=== PATIENT | female | born 1960 | race Caucasian/White ===

== ENCOUNTER → 2019-11-24 08:55 | Outpatient (CLI) | payer BC, SELFPAY ==
--- NOTE | ~2019-11-24 | CT_ITS ---
EXAMINATION: CT lung screening EXAM DATE: 11/24/2019 09:21 INDICATION: Personal history of nicotine dependence. Breast cancer. TECHNIQUE: Spiral low dose CT of the chest without contrast. Axial, coronal and sagittal images were reviewed. The dose-length product (DLP) for this examination was 105.80 mGy-cm. The exposure was t ailored according to patient size (auto mA exposure control), and iterative reconstruction (ASIR) was used as additional dose reduction technique. There is no prior study for comparison. FINDINGS: There is a left-sided Chemo-Port in position. Mild to moderate emphysema and hyperinflatio n. Left upper lobe calcified granuloma. Incompletely imaged masslike density superficial to the right axilla. Tracheobronchial tree is patent. There is no mediastinal, hilar or axillary lymphadenopat hy. There are no pleural or pericardial effusions. There is no pneumothorax. Heart normal in si ze. No evidence of coronary arterial calcification. There is 1.9 cm left adrenal adenoma. There is mild thoracic spondylosis without osteoblastic or osteolytic lesions identified. IMPRESSION: 1. Lung-RADS category 1S, negative (<1%chance of malignancy); recommend continued LDCT screening in 1 year. 2. Incompletely imaged mass anterior to the right axilla. Reviewed, dictated and finalized at location B. WRIGHT INSTRUCTOR IMPRESSION: 1. Lung-RADS category 1S, negative (<1%chance of malignancy); recommend contin ued LDCT screening in 1 year. 2. Incompletely imaged mass anterior to the right axilla.
== END ==
PROVIDERS: PCP Internal Medicine; Visit Provider Radiology Radiation Oncology
DX: Z12.2 Encounter for screening for malignant neoplasm of respiratory organs (principal); Z87.891 Personal history of nicotine dependence
CPT/HCPCS: G0297

== ENCOUNTER 2019-11-28 13:10 | Outpatient (CLI) | payer BC, SELFPAY ==
--- NOTE | ~2019-11-28 | US_ITS ---
EXAMINATION: US breast RT limited HISTORY: Lump in the upper outer quadrant of the right breast TECHNIQUE: Targeted right breast ultrasound is performed. FINDINGS: There is a 2.1 x 1.9 x 1.7 cm anechoic area in the right breast at the 11:00 location 9 cm from the nipple corresponding to the area of clinical interest. This demonstrates posterior acoustic enhancement with no internal vascularity. IMPRESSION: Cystic area corresponding to the right breast lump. Given history of lymph node removal from this are a, finding is most consistent with a small seroma. Clinical follow-up is recommended. BI-RADS Category 2: Benign finding(s). Reviewed, dictated and finalized at location A. BURNER IMPRESSION: Cystic area corresponding to the right breast lump. Given history of lymph node removal from this area, finding is most consistent with a small seroma. Clinic al follow-up is recommended. BI-RADS Category 2: Benign finding(s).
== END 2019-11-28 13:11 | disposition home or self-care (01) ==
PROVIDERS: PCP Internal Medicine; Visit Provider Internal Medicine Hematology & Oncology
DX: C50.411 Malignant neoplasm of upper-outer quadrant of right female breast (principal); Z17.0 Estrogen receptor positive status [ER+]
CPT/HCPCS: 76642

== ENCOUNTER 2020-03-12 13:43 | Emergency (ER) | payer SELFPAY ==
[2020-03-12] VITALS (7 sets, daily range): BP systolic 117–126; BP diastolic 80–84; PULSE 87–96; RESP 13–25; O2SAT 95–100
--- NOTE | ~2020-03-12 | XR_ITS ---
XR hip LT min 3V w AP pelvis DATE: 03/12/2020 15:49 INDICATION: Left hip pain. Femoral head pain. TECHNIQUE: AP pelvis. AP, lateral, crosstable lateral views of left hip COMPARISON: None FINDINGS: No pelvic fracture or bone destruction is detected. The pubic symphysis and sacroiliac join ts are intact. Hip joint spaces are relatively well preserved, except for mild narrowing and spurring primarily on the right. IMPRESSION: Mild osteoarthritis of right hip Reviewed, dictated and finalized at location A.
--- NOTE | ~2020-03-12 | US_ITS ---
EXAMINATION: US venous doppler [facility] DATE: 03/12/2020 15:17 INDICATION: Left lower limb pain. TECHNIQUE: Grayscale ultrasound images without and with compression and Doppler ultrasound images of the left lower extremity veins were obtained. COMPARISON: Ultrasound 10/07/2017 FINDINGS: The visualized portions of left common femoral vein, profunda (deep) femoral vein, femoral vein, popl iteal vein, peroneal veins, posterior tibial veins, and greater saphenous vein outflow are patent. IMPRESSION: 1. No deep venous thrombosis. Reviewed, dictated and finalized at location A.
--- NOTE | ~2020-03-12 | CT_ITS ---
EXAMINATION: CTA chest PE protocol DATE: 03/12/2020 15:58 INDICATION: TECHNIQUE: Computed tomography angiography (CTA) of the chest was performed with 100 mL Omnipaque-350 intravenous contrast timed to evaluate the pulmonary arteries. Coronal maximum intensity projection 3D-reconstructions were created by the technologist. Automated exposure control and iterative reconst ruction technique were employed. Exam dose: 232.95 mGy-cm total exam DLP. COMPARISON: None. FINDINGS: There is moderate contrast opacification the pulmonary arteries and no evidence of pulmonar y embolism. No thoracic aortic aneurysm or dissection. No pericardial or pleural effusion. No hilar or mediastinal mass lesion or lymphadenopathy. Right-sided thyroid goiter. There is no pulmonary consolidation. There is old pulmonary granulomatous disease. Approximately 1.3 x 2 cm low attenuation left adrenal mass, likely an adrenal adenoma. No suspicious osteolytic or osteoblastic lesions are noted. IMPRESSION: No evidence of pulmonary embolism Reviewed, dictated and finalized at Location A. Reviewed, dictated and finalized at location A.
--- NOTE | ~2020-03-12 | XR_ITS ---
XR chest 1V DATE: 03/12/2020 15:49 INDICATION: Shortness of breath TECHNIQUE: PA chest COMPARISON: 11/24/2019 CT lung screening FINDINGS: Left Port-A-Cath catheter tip is in lower superior vena cava. Normal heart size. Aortic arc h calcification. No hilar or mediastinal enlargement. Bilateral hyperinflation consistent with emphysema. No pulmonary infiltrate or consolidation, pleural effusion or pulmonary vascular congestion or pneumothorax. Included skeletal structures are unremark able. IMPRESSION: Left chemotherapy port Bilateral hyperinflation; no active cardiopulmonary disease Reviewed, dictated and finalized at location A.
--- NOTE | 2020-03-12 14:06 | ECG_ITS ---
Measurements Intervals Hunt Rate: 92 P: 81 LA: 145 QRS: -5 QRSD: 89 T: 72 QT: 309 QTc: 384 Interpretive Statements SINUS RHYTHM INCOMPLETE RIGHT BUNDLE BRANCH BLOCK BORDERLINE ST-T WAVE ABNORMALITY- ANTEROLAT/LAT LEADS BORDERLINE ECG Electronically Signed On 03-12-2020 14:50:29 CDT by Andi Link D.O.
[2020-03-12] MEDS: SODIUM CHLORIDE 0.9% IV 1,000 ML 999 ML IV CONT (14:45)
[2020-03-12 14:52] LABS: Basophils Percent Auto 0.5 % (0.2-1.2); Eosinophils Absolute Auto 0.1 K/mm3 (0-0.3); Eosinophils Percent Auto 2.5 % (0-4.4); Hematocrit 39.3 % (37.0-47.0); Hemoglobin 12.9 g/dL (12.0-15.0); Immature Granulocyte Absolute 0.02 K/mm3 (0.00-0.031); Immature Granulocyte Percent A 0.4 % (0-0.5); Lymphocytes Absolute Auto 1.18 K/mm3 (0.9-3.2); Lymphocytes Percent Auto 21.2 % (18.3-44.2); Mean Corpuscular HGB Conc 32.8 g/dl (32-36); Mean Corpuscular Hemoglobin 29.6 pg (26-34); Mean Corpuscular Volume 90.1 fl (80-100); Mean Platelet Volume 9.4 fl (7.4-10.4); Monocytes Absolute Auto 0.5 K/mm3 (0.1-0.6); Monocytes Percent Auto 8.4 % (2.6-8.5); Neutrophils Absolute Auto 3.7 K/mm3 (1.3-6.7); Platelet Count Result 307 k/mm3 (150-375); Red Blood Count 4.36 M/mm3 (4.2-5.4); White Blood Count 5.6 K/mm3 (4.5-10.0)
[2020-03-12 14:57] LABS: INR 1.1; Partial Thromboplastin Time 29.3 SECONDS (22.3-36.8); Prothrombin Time 13.5 Seconds (11.1-14.7)
[2020-03-12 15:00] LABS: D Dimer 1.04 ug/mL (<0.48)
[2020-03-12 15:01] LABS: Alanine Aminotransferase 14 U/L (4-35); Albumin Level 4.2 g/dL (3.5-5.1); Alkaline Phosphatase 96 U/L (38-126); Aspartate Amino Transferase 23 U/L (14-36); Bilirubin,Total 0.3 mg/dL (0.2-1.3); Blood Urea Nitrogen 11 mg/dL (7-17); Calcium 9.4 mg/dL (8.4-10.2); Carbon Dioxide 26 mmol/L (22-30); Chloride 104 mmol/L (98-107); Estimated CRCL calculation 50 ml/min; Estimated Glomerular Filt Rate 46; Glucose 107 mg/dL (65-105); Sodium 138 mmol/L (137-145)
[2020-03-12 15:12] LABS: NT Pro B Type Natriuretic Pept 36 PG/ML (5-100); Troponin I < 0.012 ng/mL (0.000-0.034)
--- NOTE | 2020-03-12 16:39 | ED.GENADULT ---
HPI - General Adult General Chief complaint: Extremity Injury, Lower Stated complaint: Left Leg Pain, Brusing to Left Arm Time Seen by Provider: 03/12/20 13:56 Source: patient Mode of arrival: ambulatory Limitations: no limitations History of Present Illness HPI narrative: Patient is a 59-year-old female who presents to emergency department for evaluation of left hip pain is an aching pain to the left thigh and hip region worse with weightbearing and activity that started today denies injury or trauma patient also notes some associated shortness of breath over the last week. Patient is currently being treated for breast cancer and is a smoker. Patient denies URI symptoms. Patient on arrival in the room in no distress has not taken anything for her pain. Patient is followed by oncology Related Data Home Medications Medication Instructions Recorded Confirmed aspirin 325 mg PO DAILY 10/14/19 02/07/20 alprazolam 0.25 mg PO BID 11/14/19 02/07/20 bupropion HCl 300 mg PO QAM 11/14/19 02/07/20 duloxetine 60 mg PO DAILY 11/14/19 02/07/20 folic acid 1 mg PO DAILY 11/14/19 02/07/20 leflunomide 20 mg DAILY 11/14/19 02/07/20 quetiapine 200 mg PO HS 11/14/19 02/07/20 anastrozole 1 mg PO DAILY 02/07/20 02/07/20 aripiprazole 5 mg PO DAILY 02/07/20 02/07/20 diphenoxylate-atropine [Lomotil] 1 tablet PO TID PRN 02/07/20 02/07/20 gabapentin 300 mg PO BID 02/07/20 02/07/20 ipratropium-albuterol 3 ml INHALATION QID PRN 02/07/20 02/07/20 lidocaine-prilocaine 1 applic TOPICAL ONCE 02/07/20 02/07/20 naloxone [Narcan] 1 spray INTRANASAL Q2M 02/07/20 02/07/20 prazosin 1 mg PO HS 02/07/20 02/07/20 Allergies Allergy/AdvReac Type Severity Reaction Status Date / Time Sulfa (Sulfonamide Allergy Unknown Rash Verified 03/12/20 13:58 Antibiotics) Review of Systems Review of Systems: All systems reviewed & are unremarkable except as noted in HPI and below PMFSH Past Medical History Medical History Adverse effect of chemotherapy Asthma COPD (chronic obstructive pulmonary disease) Depression High cholesterol PTSD (post-traumatic stress disorder) Rheumatoid arthritis Family History Family History (Updated 11/14/19 @ 15:02 by Vivien Cervantes MD) Mother Renal cell carcinoma Other Asthma Cerebrovascular accident Depression Diabetes mellitus Family history of arthritis Family history of cardiovascular disease Hypertension Social History Social History Smoking packs per day: 1 Smoking cigarettes per day: 20.0 Years smoked: 40 Smoking pack-years: 40.00 Smoking status: Current every day smoker Tobacco type: cigarettes Alcohol intake: current Gender identity (if verbalized by the patient): Female Spiritual care concerns: No Exam Narrative: Exam Narrative: GENERAL: Well-appearing, well-nourished, and in no acute distress. HEAD: Normocephalic, atraumatic. EYES: PERRLA and EOMI. ENT: Nares clear, no rhinorrhea or epistaxis. Mucous membranes moist. CHEST: Clear to auscultation. No respiratory distress. No wheezes rales or rhonchi HEART: Regular rate and rhythm. No murmur heard. Normal peripheral pulses. EXTREMITIES: Normal range of motion. No edema. Bruise to the anterior left salazar just below the knee. Mild tenderness of the left hip no deformity noted. No midline lumbar tenderness SKIN: Warm, dry, no rash. NEURO: No focal deficits. Alert and oriented x3. Cranial nerves II through XII grossly intact. Neurovascularly intact. Capillary refill less than 2 seconds PSYCH: Normal mood and affect. Course Course Emergency Course: Patient in the room in no distress aware of case findings treatment plan and diagnosis agreeing to follow-up as directed or to return if symptoms worsen or concerns Vital Signs Vital signs: Vital Signs Pulse Rate 94 03/12/20 13:55 Respiratory Rate 18 03/12/20 1
== END 2020-03-12 17:18 | disposition home or self-care (01) ==
PROVIDERS: Emergency Medicine Emergency Medical Services; Emergency Provider Emergency Medicine; PCP Internal Medicine
DX: M25.552 Pain in left hip (principal); R06.00 Dyspnea, unspecified; J44.9 Chronic obstructive pulmonary disease, unspecified; E78.00 Pure hypercholesterolemia, unspecified; M06.9 Rheumatoid arthritis, unspecified; F43.10 Post-traumatic stress disorder, unspecified; F17.210 Nicotine dependence, cigarettes, uncomplicated; M16.11 Unilateral primary osteoarthritis, right hip; I45.10 Unspecified right bundle-branch block; R94.31 Abnormal electrocardiogram [ECG] [EKG]; Z79.82 Long term (current) use of aspirin
CPT/HCPCS: 36415; 71045; 71275; 73502; 80053; 83735; 83880; 84484; 85025; 85380; 85610; 85730; 93005; 93971; 96360; 99284; J7030; Q9967

== ENCOUNTER 2020-05-04 08:52 | Outpatient (CLI) | payer BC, SELFPAY ==
--- NOTE | 2020-05-04 | ECHO_ITS ---
Patient Info Name: Kenzie Camara Age: 59 years : 1960 Gender: Female Ht: 71 in Wt: 168 lbs BSA: 1.96 m2 HR: 95 bpm BP: 135 / 85 mmHg Heart Rhythm: Sinus Rhythm Technical Quality: Good Exam Date: 05/04/2020 9:09 AM Exam Location: [facility] Patient Status: Outpatient Admit Date: 05/04/2020 Staff Ordering Physician: Michael Yang MD Photographic Printer: Ancelmo Lares RDCS Attending Provider: Michael Yang MD Referring Physician: Celia BURKS; Exam Type: CA echo doppler color flow Study Info Indications C50.411 - Malignant neoplasm of upper-outer quadrant of right female breast Complete two-dimensional, color flow and Doppler transthoracic echocardiogram is performed. Strain analysis performed. History/Risk Factors Breast cancer on Herceptin. Summary 1. Left ventricular chamber dimension is normal. 2. Left ventricular systolic function is normal, estimated at 60-65%. 3. There is no increased left ventricular wall thickness. 4. The left ventricular diastolic function is grade I diastolic dysfunction. 5. Global longitudinal strain is normal at -19 %. 6. There is mild mitral valve regurgitation. Left Ventricle Left ventricular chamber dimension is normal. Left ventricular systolic function is normal, estimated at 60-65%. There is no increased left ventricular wall thickness. The left ventricular diastolic function is grade I diastolic dysfunction. Global longitudinal strain is normal at -19 %. Right Ventricle Right ventricular chamber dimension is normal. Right ventricular systolic function is normal. Left Atria Left atrial chamber dimension is normal. Right Atria Right atrial chamber dimension is normal. Atrial Septum Intact interatrial septum visualized by color flow imaging. Aortic Valve The aortic valve is not well visualized. There is no aortic valve stenosis. There is trace aortic valve regurgitation. Pulmonic Valve The pulmonic valve is not well visualized. There is no pulmonic valve stenosis. There is trace pulmonic regurgitation. Mitral Valve The mitral valve has normal leaflets. There is no mitral valve stenosis. There is mild mitral valve regurgitation. Tricuspid Valve The tricuspid valve leaflets are normal. There is no significant tricuspid valve stenosis. There is trace tricuspid valve regurgitation. Pericardium/Pleural The pericardium appears normal. There is no pericardial effusion. Inferior Vena Cava Normal inferior vena cava with >50% collapse upon inspiration consistent with normal right atrial pressure, 5 mmHg. Aorta The aortic root size at the sinus of Valsalva is normal. Left Ventricular Outflow Tract Name Value Normal LVOT 2D LVOT Diameter 2.0 cm LVOT Doppler LVOT Peak Gradient 2 mmHg LVOT Mean Gradient 1 mmHg LVOT VTI 12 cm LVOT VTI/AV VTI Ratio 0.7 LVOT Stroke Volume 39 ml LVOT CO 3.7 l/min LVOT CI
--- NOTE | ~2020-05-04 | MM_ITS ---
EXAMINATION: MM diagnostic aby RT w kwaku HISTORY: Follow-up right breast density TECHNIQUE: Additional 3-D tomosynthesis images of the right breast were performed and synthetic 2-D i mages were generated. CAD analysis was submitted and interpreted. COMPARISON: None BREAST PARENCHYMAL COMPOSITION: The breasts are heterogenously dense, which may obscure small masses FINDINGS: There is a scar marker in the mid outer aspect of the right breast from previous lumpectomy . There is suggestion of architectural distortion near this location, although no discrete mass or ab normal calcifications are identified. IMPRESSION: 1. Probable posterior changes mid outer aspect of the right breast corresponding to the area of the s car marker. 2. Comparison outside mammograms recommended. BI-RADS CATEGORY 0 - INCOMPLETE STUDY, NEED ADDITIONAL IMAGING EVALUATION. Reviewed, dictated and finalized at location A. IMPRESSION: 1. Probable posterior changes mid outer aspect of the right breast correspondin g to the area of the scar marker. 2. Comparison outside mammograms recommended. BI-RADS CATEGORY 0 - INCOMPLETE STUDY, NEED ADDITIONAL IMAGING EVALUATION.
== END 2020-05-04 08:53 | disposition home or self-care (01) ==
PROVIDERS: PCP Internal Medicine; Visit Provider Internal Medicine Hematology & Oncology
DX: C50.411 Malignant neoplasm of upper-outer quadrant of right female breast (principal); Z17.0 Estrogen receptor positive status [ER+]; N63.10 Unspecified lump in the right breast, unspecified quadrant; R92.8 Other abnormal and inconclusive findings on diagnostic imaging of breast
CPT/HCPCS: 77061; 77065; 93306; G0279

== ENCOUNTER 2020-06-19 10:27 | Outpatient (CLI) | payer BC, SELFPAY ==
--- NOTE | ~2020-06-19 | MM_ITS ---
EXAMINATION: MM screening aby BI w kwaku HISTORY: Screening TECHNIQUE: Craniocaudal and mediolateral oblique 3-D tomosynthesis images were obtained and synthetic 2-D images were generated. CAD analysis was submitted and interpreted. COMPARISON: No prior mammogram is available for comparison at this institution. BREAST PARENCHYMAL COMPOSITION: The breasts are heterogeneously dense, which may obscure small masses . FINDINGS: There is no evidence of suspicious mass, calcification, or architectural distortion to sugg est malignancy in either breast. There has been no suspicious interval change. IMPRESSION: 1. No mammographic evidence of malignancy. 2. Recommend routine screening mammography in one year. BI-RADS Category 1: Negative Reviewed, dictated and finalized at location A.
== END 2020-06-19 10:28 | disposition home or self-care (01) ==
LOC: ANHIMG 10:30
PROVIDERS: PCP Internal Medicine; Visit Provider Nurse Practitioner Adult Health
DX: Z12.31 Encounter for screening mammogram for malignant neoplasm of breast (principal); C50.911 Malignant neoplasm of unspecified site of right female breast; Z17.0 Estrogen receptor positive status [ER+]
CPT/HCPCS: 77063; 77067

== ENCOUNTER 2020-08-13 13:30 | Outpatient (CLI) | payer BC, SELFPAY ==
--- NOTE | 2020-08-13 | ECHO_ITS ---
Patient Info Name: Kenzie Camara Age: 59 years : 1960 Gender: Female Ht: 69 in Wt: 170 lbs BSA: 1.95 m2 HR: 83 bpm BP: 131 / 91 mmHg Heart Rhythm: Sinus Rhythm Technical Quality: Fair Exam Date: 08/13/2020 2:35 PM Exam Location: [facility] Patient Status: Outpatient Admit Date: 08/13/2020 Staff Ordering Physician: Allie Martinez Hr Coordinator: Areli Patel RDCS Attending Provider: Allie Martinez Referring Physician: Juan SIDDIQI; Exam Type: CA echo doppler color flow Study Info Indications C50.911 - Malignant neoplasm of unspecified site of right female breast Complete two-dimensional, color flow and Doppler transthoracic echocardiogram is performed. Strain analysis performed. Summary 1. Complete two-dimensional, color flow and Doppler transthoracic echocardiogram is performed. 2. Strain analysis performed. 3. Left ventricular chamber dimension is normal. 4. Left ventricular systolic function is normal, estimated at 55-60%. 5. There is no increased left ventricular wall thickness. 6. The left ventricular diastolic function is grade I diastolic dysfunction. 7. Global longitudinal strain is abnormal at -15 %. 8. There is mild mitral valve regurgitation. 9. There is mild tricuspid valve regurgitation. 10. Global longitudinal strain is now abnormal. Left Ventricle Left ventricular chamber dimension is normal. Left ventricular systolic function is normal, estimated at 55-60%. There is no increased left ventricular wall thickness. The left ventricular diastolic function is grade I diastolic dysfunction. Global longitudinal strain is abnormal at -15 %. Right Ventricle Right ventricular chamber dimension is normal. Right ventricular systolic function is normal. Left Atria Left atrial chamber dimension is normal. Right Atria Right atrial chamber dimension is normal. Atrial Septum Intact interatrial septum visualized by color flow imaging. Aortic Valve The aortic valve is trileaflet. There is no aortic valve sclerosis. There is no aortic valve stenosis. There is trace aortic valve regurgitation. Pulmonic Valve The pulmonic valve is normal. There is no pulmonic valve stenosis. There is trace pulmonic regurgitation. Mitral Valve The mitral valve has normal leaflets. There is no mitral valve stenosis. There is mild mitral valve regurgitation. Tricuspid Valve The tricuspid valve leaflets are normal. There is no significant tricuspid valve stenosis. There is mild tricuspid valve regurgitation. No pulmonary hypertension, estimated pulmonary arterial systolic pressure is 17 mmHg. Other Findings Global longitudinal strain is now abnormal. Pericardium/Pleural The pericardium appears normal. There is no pericardial effusion. Inferior Vena Cava Normal inferior vena cava with >50% collapse upon inspiration consistent with normal right atrial pressure, 10 mmHg. Aorta The aortic root size at the sinus of Valsalva is normal. Left Ventricular Outflow Tract Name Value Normal LVOT 2D LVOT Diameter 2.0 cm LVOT Doppler
--- NOTE | ~2020-08-13 | CT_ITS ---
EXAMINATION:CT lung screening DATE: 08/13/2020 14:11 INDICATION: Personal history of tobacco dependence. Current smoker with 40 pack year history. TECHNIQUE: Computed tomography (CT) of the chest was performed without intravenous contrast. Automate d exposure control and iterative reconstruction technique were employed. The dose-length product (DLP ) was 100.62 mGy-cm. COMPARISON: Chest CT 03/12/2020, 11/24/2019 FINDINGS: There is mild scarring at the lung apices. There is mild emphysema. Calcified left lung nod ules and calcified left hilar and mediastinal lymph nodes are consistent with old granulomatous disea se. There is a 5 mm nodule in right upper lobe, stable from 11/24/2019. There is mild peripheral scarr ing in right upper lobe. No pleural effusion. The heart size is normal. No pericardial effusion. Ther e is a chronic 2.1 cm mass in left adrenal gland measuring low-attenuation, consistent with an adenom a. There is a left internal jugular port with tip in superior vena cava. There is mild thoracic spond ylosis. IMPRESSION: 1. Lung-RADS category 2: Benign appearance or behavior. Continue annual screening with noncontrast lo w-dose chest CT in 12 months. Reviewed, dictated and finalized at location A. GER NURSING IMPRESSION: 1. Lung-RADS category 2: Benign appearance or behavior. Continue annual screeni ng with noncontrast low-dose chest CT in 12 months.
== END 2020-08-13 13:31 | disposition home or self-care (01) ==
PROVIDERS: PCP Internal Medicine; Visit Provider Nurse Practitioner Adult Health
DX: Z12.2 Encounter for screening for malignant neoplasm of respiratory organs (principal); Z87.891 Personal history of nicotine dependence; I34.0 Nonrheumatic mitral (valve) insufficiency; I36.1 Nonrheumatic tricuspid (valve) insufficiency
CPT/HCPCS: 93306; G0297

== ENCOUNTER 2021-01-20 10:34 | Emergency (ER) | payer BC, SELFPAY ==
--- NOTE | ~2021-01-20 | CT_ITS ---
EXAMINATION: CT lumbar spine w con EXAM DATE: 01/20/2021 13:10 INDICATION: Breast cancer, back pain. TECHNIQUE: Spiral CT of the lumbar spine was performed following intravenous injection 100 mL Omnipaq ue 350 solution. Axial, coronal and sagittal images were reviewed. The dose-length product (DLP) fo r this examination was 608.49 mGy-cm. The exposure was tailored according to patient size (auto mA exposure control), and iterative reconstruction (ASIR) was used as additional dose reduction techniqu e. Correlation is made to chest CT 08/13/2020. FINDINGS: Enough of the kidneys were imaged to exclude hydronephrosis. There are no osteoblastic or o steolytic lesions identified. There are no acute fractures identified. No areas of abnormal enhance ment, no evidence of epidural abscess. Left adrenal gland 1.5 cm nodule adenoma, correlating with rec ent prior noncontrast lung CT. There are no bony erosions identified. Sacrum, sacroiliac joints, sa cral arcuate lines are intact. There is mild to moderate aortic and iliac arteriosclerotic disease. Level by level evaluation: T12-L1: Disc does not extend beyond the endplate margin. Facet arthropathy: None. Neural foraminal stenosis: No stenosis. Central canal stenosis: No stenosis. L1-L2: There is a minimal diffuse disc bulge. Facet arthropathy: Mild. Neural foraminal stenosis: No stenosis. Central canal stenosis: No stenosis. L2-L3: There is a mild diffuse disc bulge. Facet arthropathy: Mild to moderate. Neural foraminal stenosis: No stenosis. Central canal stenosis: Mild to moderate. L3-L4: There is a mild to moderate diffuse disc bulge. Facet arthropathy: Moderate. Neural foraminal stenosis: Mild to moderate left, mild right. Central canal stenosis: Mild to moderate. L4-L5: There is a mild to moderate diffuse disc bulge. Facet arthropathy: Moderate. Neural foraminal stenosis: Moderate right, mild to moderate left. Central canal stenosis: Moderate. L5-S1: There is a mild to moderate diffuse disc bulge. Facet arthropathy: Mild to moderate. Neural foraminal stenosis: No stenosis. Central canal stenosis: No stenosis. IMPRESSION: 1. L4-5 moderate central canal stenosis. 2. Less spondylosis other levels. 3. No acute findings. Reviewed, dictated and finalized at location A.
[2021-01-20 11:02] VITALS: BP 105/70; PULSE 100; RESP 20; TEMP 36.8; O2SAT 97
[2021-01-20 12:41] LABS: Basophils Absolute Auto 0.1 K/mm3 (0.0-0.1); Basophils Percent Auto 0.5 % (0.2-1.2); Eosinophils Absolute Auto 0.3 K/mm3 (0-0.3); Eosinophils Percent Auto 2.8 % (0-4.4); Hemoglobin 12.2 g/dL (12.0-15.0); Immature Granulocyte Absolute 0.07 K/mm3 (0.00-0.031); Immature Granulocyte Percent A 0.7 % (0-0.5); Lymphocytes Absolute Auto 2.74 K/mm3 (0.9-3.2); Lymphocytes Percent Auto 26.5 % (18.3-44.2); Mean Corpuscular Hemoglobin 29.6 pg (26-34); Mean Corpuscular Volume 89.8 fl (80-100); Mean Platelet Volume 8.9 fl (7.4-10.4); Monocytes Absolute Auto 0.9 K/mm3 (0.1-0.6); Monocytes Percent Auto 9.1 % (2.6-8.5); Neutrophils Absolute Auto 6.2 K/mm3 (1.3-6.7); Neutrophils Percent Auto 60.4 % (45.5-73.1); Platelet Count Result 349 k/mm3 (150-375); Red Blood Count 4.12 M/mm3 (4.2-5.4); Red Cell Distribution Width 13.2 % (11.5-14.5); White Blood Count 10.3 K/mm3 (4.5-10.0)
[2021-01-20 12:50] LABS: Alanine Aminotransferase 13 U/L (4-35); Albumin Level 4.1 g/dL (3.5-5.1); Alkaline Phosphatase 76 U/L (38-126); Anion Gap 4 mmol/L (8-16); Aspartate Amino Transferase 21 U/L (14-36); Bilirubin,Total 0.2 mg/dL (0.2-1.3); Blood Urea Nitrogen 20 mg/dL (7-17); Calcium 8.8 mg/dL (8.4-10.2); Carbon Dioxide 27 mmol/L (22-30); Chloride 106 mmol/L (98-107); Estimated CRCL calculation 44 ml/min; Estimated Glomerular Filt Rate 42; Glucose 96 mg/dL (65-105); Potassium 4.7 mmol/L (3.4-5.0); Sodium 137 mmol/L (137-145)
[2021-01-20 13:26] LABS: Erythrocyte Sedimentation Rate 101 mm/hr (0-20)
--- NOTE | 2021-01-20 14:31 | ED.BACK ---
HPI - Back Pain/Injury General Chief Complaint: Back Pain/Injury Stated Complaint: LOW BACK PAIN Time Seen by Provider: 01/20/21 11:13 Source: patient Mode of arrival: ambulatory Limitations: no limitations History of Present Illness HPI Narrative: 60-year-old female Just completed treatment for breast cancer in October Patient reports that she had a severe sharp pain in her right lower back after bending over last week Pain radiated partly into the thigh but was otherwise unassociated with numbness weakness or bowel or bladder symptoms She reports receiving 2 steroid shots at her doctor's office on Thursday and but it does not really seem to be helping She also happens to be taking gabapentin and alprazolam Related Data Home Medications Medication Instructions Recorded Confirmed aspirin 325 mg PO DAILY 10/14/19 01/02/21 alprazolam 0.25 mg PO BID 11/14/19 01/02/21 bupropion HCl 300 mg PO QAM 11/14/19 01/02/21 quetiapine 200 mg PO HS 11/14/19 01/02/21 anastrozole 1 mg PO DAILY 02/07/20 01/02/21 aripiprazole 5 mg PO DAILY 02/07/20 01/02/21 diphenoxylate-atropine [Lomotil] 1 tablet PO TID PRN 02/07/20 01/02/21 gabapentin 300 mg PO BID 02/07/20 01/02/21 ipratropium-albuterol 3 ml INHALATION QID PRN 02/07/20 01/02/21 duloxetine 60 mg capsule,delayed 60 mg PO DAILY cap 08/29/20 01/02/21 release Allergies Allergy/AdvReac Type Severity Reaction Status Date / Time Sulfa (Sulfonamide Allergy Mild Rash Verified 01/20/21 11:35 Antibiotics) Review of Systems Review of Systems: All systems reviewed & are unremarkable except as noted in HPI and below Constitutional: Constitutional: Reports no additional constitutional complaints, Denies chills, Denies fever(s) and Denies headache(s) ENT: Denies headache(s) Cardiovascular: Cardiovascular: Denies chest pain and Denies dyspnea Respiratory: Respiratory: Denies dyspnea Gastrointestinal: Gastrointestinal: Denies vomiting Genitourinary: Genitourinary: Denies urinary frequency and Denies dysuria Musculoskeletal: Musculoskeletal: Reports back pain, Reports myalgias, Denies deformity, Reports arthralgias, Reports joint swelling and Denies numbness Integumentary/Breasts: Skin/Breast: Denies rash and Denies wounds Neurologic: Denies headache(s), Denies focal weakness and Denies numbness PMFSH Past Medical History Medical History Adverse effect of chemotherapy Asthma COPD (chronic obstructive pulmonary disease) Depression Family history of esophageal cancer Heart disease High cholesterol Otitis media of both ears PTSD (post-traumatic stress disorder) Rheumatoid arthritis Family History Family History Mother Renal cell carcinoma Other Asthma Cerebrovascular accident Depression Diabetes mellitus Family history of arthritis Family history of cardiovascular disease Hypertension Social History Social History Smoking packs per day: 1 Smoking cigarettes per day: 20.0 Years smoked: 40 Smoking pack-years: 40.00 Smoking status: Current every day smoker Tobacco type: cigarettes Alcohol intake: current Substance use: never Additional occupation/education comments: [employer] Gender identity (if verbalized by the patient): Female Spiritual care concerns: No Exam Const: General: cooperative, no acute distress and alert Orientation/consciousness: patient oriented x3 (alert) HENMT: Head: normal to inspection, normocephalic and atraumatic Ears: external ears normal General nose exam: no epistaxis Eyes: Conjunctivae: conjunctivae normal EOM: EOMs intact bilaterally Neck: Neck: normal visual inspection, supple and no JVD Resp: Effort & Inspection: normal respiratory effort and not labored Auscultation: other (BS =) : General: Yes no CVA tenderness Back
[2021-01-20] MEDS: KETOROLAC 15 MG/ML VIAL (*BKC) IV PUSH (14:50)
[2021-01-20] MEDS: methocarbamoL 750 MG TABLET PO (14:50)
[2021-01-20 15:02] VITALS: BP 110/70; PULSE 78; RESP 16; O2SAT 100
[2021-01-25 19:44] LABS: Alkaline Phosphatase 68 U/L (37-153); Macrohepatic Isoenzymes 0 % (<=0)
== END 2021-01-20 15:02 | disposition home or self-care (01) ==
PROVIDERS: Emergency Provider Emergency Medicine; PCP Internal Medicine
DX: M54.5 Low back pain (principal); M47.896 Other spondylosis, lumbar region; J44.9 Chronic obstructive pulmonary disease, unspecified; E78.00 Pure hypercholesterolemia, unspecified; I51.9 Heart disease, unspecified; M06.9 Rheumatoid arthritis, unspecified; F32.9 Major depressive disorder, single episode, unspecified; F43.10 Post-traumatic stress disorder, unspecified; Z79.82 Long term (current) use of aspirin; F17.210 Nicotine dependence, cigarettes, uncomplicated
CPT/HCPCS: 36415; 72132; 80053; 84075; 84080; 85025; 85652; 96372; 96374; 99284; A9270; J1885; Q9967

== ENCOUNTER 2021-01-24 21:56 | Emergency (ER) | payer BC, SELFPAY ==
[2021-01-24 22:27] VITALS: BP 135/85; PULSE 98; RESP 20; TEMP 36.9; O2SAT 96
[2021-01-24 22:43] VITALS: BP 143/91; PULSE 94; RESP 19; O2SAT 99
[2021-01-24] MEDS: HYDROmorphone HCL INJ (*CRX) 1 MG/ML SYR IM (23:41)
[2021-01-24] MEDS: DEXAMETHASONE SOD PHOS INJ 4 MG/ML VIAL 10 MG IM (23:41)
--- NOTE | 2021-01-24 23:41 | ED.GENADULT ---
HPI - General Adult General Chief complaint: Back Pain/Injury Stated complaint: lower back pain Time Seen by Provider: 01/24/21 23:05 History of Present Illness HPI narrative: Patient is a 60-year-old female who presents to emergency department chief complaint of low back pain. Patient reports he was seen in the emergency department and seen by her primary care physician patient scheduled for an outpatient MRI patient was seen in the emergency department had a lumbar CT scan that showed no evidence of acute problem other than some arthritis. Patient states that she is having so much pain and the Tylenol with codeine is not improving her pain. Patient denies bowel or bladder dysfunction does report that she has some pain that shoots down her leg states the pain makes it difficult to try to ambulate but she is able to ambulate with extreme difficulty. Related Data Home Medications Medication Instructions Recorded Confirmed aspirin 325 mg PO DAILY 10/14/19 01/23/21 alprazolam 0.25 mg PO BID 11/14/19 01/23/21 bupropion HCl 300 mg PO QAM 11/14/19 01/23/21 quetiapine 200 mg PO HS 11/14/19 01/23/21 anastrozole 1 mg PO DAILY 02/07/20 01/23/21 aripiprazole 5 mg PO DAILY 02/07/20 01/23/21 diphenoxylate-atropine [Lomotil] 1 tablet PO TID PRN 02/07/20 01/23/21 gabapentin 300 mg PO BID 02/07/20 01/23/21 ipratropium-albuterol 3 ml INHALATION QID PRN 02/07/20 01/23/21 duloxetine 60 mg capsule,delayed 60 mg PO DAILY cap 08/29/20 01/23/21 release Allergies Allergy/AdvReac Type Severity Reaction Status Date / Time Sulfa (Sulfonamide Allergy Mild Rash Verified 01/24/21 22:30 Antibiotics) Review of Systems Review of Systems: Narrative: A 10 system review of systems was completed on the patient and is negative except for what is stated in the HPI. Nursing and ancillary documentation was reviewed. [facility] [place] Past Medical History Medical History Adverse effect of chemotherapy Asthma COPD (chronic obstructive pulmonary disease) Depression Family history of esophageal cancer Heart disease High cholesterol Otitis media of both ears PTSD (post-traumatic stress disorder) Rheumatoid arthritis Family History Family History Mother Renal cell carcinoma Other Asthma Cerebrovascular accident Depression Diabetes mellitus Family history of arthritis Family history of cardiovascular disease Hypertension Social History Social History Smoking packs per day: 1 Smoking cigarettes per day: 20.0 Years smoked: 40 Smoking pack-years: 40.00 Smoking status: Current every day smoker Tobacco type: cigarettes Alcohol intake: current Substance use: never Additional occupation/education comments: [employer] Gender identity (if verbalized by the patient): Female Spiritual care concerns: No Exam Narrative: Exam Narrative: GENERAL: Well-appearing, well-nourished, and in no acute distress. HEAD: Normocephalic, atraumatic. EYES: PERRLA and EOMI. ENT: Nares clear, no rhinorrhea or epistaxis. Mucous membranes moist. NECK: Supple. CHEST: Clear to auscultation. No respiratory distress. HEART: Regular rate and rhythm. No murmur heard. Normal peripheral pulses. ABDOMEN: Soft, nontender, nondistended, normal active bowel sounds. EXTREMITIES: Normal range of motion. No edema. SKIN: Warm, dry, no rash. NEURO: No focal deficits. Alert and oriented x3. PSYCH: Normal mood and affect. Course Vital Signs Vital signs: Vital Signs Temperature 36.9 C 01/24/21 22:27 Pulse Rate 98 01/24/21 22:27 Respiratory Rate 20 01/24/21 22:27 Blood Pressure 135/85 01/24/21 22:27 Pulse Oximetry 96 01/24/21 22:27 Temperature 36.9 C 01/24/21 22:27 Pulse Rate 94 01/24/21 22:43 Respiratory Rate 19 01/24/21 22:43 Blood Pressure 1
[2021-01-24] MEDS: KETOROLAC 30 MG/ML VIAL (*BKC) IM (23:42)
[2021-01-25 00:39] VITALS: BP 144/84; PULSE 92; RESP 17; O2SAT 98
== END 2021-01-25 00:41 | disposition home or self-care (01) ==
PROVIDERS: Emergency Provider Emergency Medicine; PCP Internal Medicine
DX: M54.5 Low back pain (principal); J44.9 Chronic obstructive pulmonary disease, unspecified; E78.00 Pure hypercholesterolemia, unspecified; M06.9 Rheumatoid arthritis, unspecified; F32.9 Major depressive disorder, single episode, unspecified; F43.10 Post-traumatic stress disorder, unspecified; Z79.82 Long term (current) use of aspirin; F17.210 Nicotine dependence, cigarettes, uncomplicated
CPT/HCPCS: 96372; 99284; J1100; J1170; J1885

== ENCOUNTER 2021-01-28 09:40 | Outpatient (CLI) | payer BC, SELFPAY ==
--- NOTE | ~2021-01-28 | MR_ITS ---
EXAMINATION: MR lumbar spine wo con DATE: 01/28/2021 10:21 INDICATION: Low back pain. TECHNIQUE: Magnetic resonance imaging (MRI) of the lumbar spine was performed without intravenous con trast. Sequences included sagittal T2-weighted FSE, sagittal T2-weighted FS FSE, sagittal T1-weighted FSE, and axial T2-weighted FSE. COMPARISON: CT lumbar spine 01/20/2021 FINDINGS: Bone alignment is normal. Vertebral body heights are normal. There is mildly decreased disc height at L3-L4 and L4-L5. There is a hemangioma in T11 vertebral body. The distal spinal cord signa l intensity is normal. The conus medullaris is at L1. The following disc levels are specifically disc ussed: L1-L2: There is a left central protrusion. There is no facet joint osteoarthritis. There is no neural foraminal stenosis. There is mild central canal stenosis. L2-L3: The disc is bulging. There is mild right and moderate left facet joint osteoarthritis. There i s mild bilateral neural foraminal stenosis. There is mild central canal stenosis. L3-L4: The disc is bulging and has an annular fissure. There is moderate bilateral facet joint osteoa rthritis. There is mild bilateral neural foraminal stenosis. There is mild central canal stenosis. L4-L5: The disc is bulging with superimposed right foraminal extrusion. There is moderate bilateral f acet joint osteoarthritis. There is moderate right and mild left neural foraminal stenosis. There is mild central canal stenosis. L5-S1: The disc is mildly bulging. There is moderate left facet joint osteoarthritis. There is mild l eft neural foraminal stenosis. There is no central canal stenosis. IMPRESSION: 1. Moderate right neural foraminal stenosis at L4-L5. Otherwise mild lumbar spondylosis. Reviewed, dictated and finalized at location B. IMPRESSION: 1. Moderate right neural foraminal stenosis at L4-L5. Otherwise mild lumbar spo ndylosis.
== END 2021-01-28 09:41 ==
LOC: MICIMG 09:40
PROVIDERS: Visit Provider Internal Medicine
DX: M47.896 Other spondylosis, lumbar region (principal)
CPT/HCPCS: 72148

== ENCOUNTER → 2021-03-09 03:53 | Outpatient (CLI) | payer BC, SELFPAY ==
[2021-03-09 19:46] LABS: SARS-CoV-2 RNA PCR Negative
== END ==
PROVIDERS: PCP Internal Medicine; Visit Provider Internal Medicine Gastroenterology
DX: Z01.812 Encounter for preprocedural laboratory examination (principal); Z20.822 Contact with and (suspected) exposure to COVID-19
CPT/HCPCS: C9803; U0003; U0005

== ENCOUNTER 2021-03-12 01:18 | Day surgery (SDC) | payer BC, SELFPAY ==
[2021-02-19 09:37] VITALS: BMI 25.9
--- NOTE | 2021-03-07 12:39 | PC.NURSE ---
PT INTERVIEWED AND REVIEWED DATE AND TIME OF PROC AND PRE-TESTING, PT DENIES ANY MAJOR HEALTH CHANGES SINCE INTERVIEW 02/19/2021-PT HAD TO CANCEL PROC SCHED ON 02/27/2021 DUE TO IN FAMILY, MEDICATIONS RECONCILED WITH PT.
[2021-03-07 12:42] VITALS: BMI 25.9
[2021-03-12 12:15] VITALS: BP 151/96; PULSE 117; RESP 16; TEMP 35.7; O2SAT 100
--- NOTE | 2021-03-12 12:18 | WPDANESEPPF ---
Anes - Initial Pre Proc Eval Procedure: Operation Date: 03/12/21 13:15 Proposed Procedures p Esophagogastroduodenoscopy & Screening Colonoscopy - Earl Lindquist MD Date/Time: 03/12/21 12:18 Surgeon: Earl Lindquist MD Pre Op Diagnosis: neoplasm screening, GERD Patient Data Age: 60 Gender: F Height: 5 ft 10 in Weight: 82 kg Last Vital Signs Temp 96.3 F L 03/12/21 12:15 Pulse 117 H 03/12/21 12:15 Resp 16 03/12/21 12:15 BP 151/96 H 03/12/21 12:15 Pulse Ox 100 03/12/21 12:15 Allergies Allergy/AdvReac Type Severity Reaction Status Date / Time Sulfa (Sulfonamide Allergy Mild Rash Verified 03/12/21 12:13 Antibiotics) Home Medications Medication Instructions Recorded Confirmed Type aspirin 325 mg PO DAILY 10/14/19 03/12/21 History alprazolam 0.25 mg PO BID PRN 11/14/19 03/12/21 History bupropion HCl 300 mg PO QAM 11/14/19 03/12/21 History quetiapine 200 mg PO HS 11/14/19 03/12/21 History anastrozole 1 mg PO DAILY 02/07/20 03/12/21 History diphenoxylate-atropine [Lomotil] 1 tablet PO TID PRN 02/07/20 03/12/21 History ipratropium-albuterol 3 ml INHALATION QID PRN 02/07/20 03/12/21 History atorvastatin 20 mg tablet 20 mg PO DAILY 90 Days #90 tablet 04/17/20 03/12/21 Rx albuterol sulfate 90 mcg/actuation 2 puff INHALATION Q4H PRN #18 g 07/23/20 03/12/21 Rx aerosol inhaler duloxetine 60 mg capsule,delayed 60 mg PO DAILY cap 08/29/20 03/12/21 History release sodium,potassium,mag sulfates 17.5 See Rx Instructions PO .COMPLEX 01/30/21 03/12/21 Rx gram-3.13 gram-1.6 gram oral soln #354 ml sod picosulf 10 mg-magnes 3.5 160 ml PO BID #160 ml 01/31/21 03/12/21 Rx gram-citric 12 gram/160 mL oral solution varenicline [Chantix] 1 mg PO BID 03/07/21 03/12/21 History Patient hx anesthesia problems: none Family hx anesthesia problems: none PMFSH Past Medical History Medical History Adverse effect of chemotherapy Asthma COPD (chronic obstructive pulmonary disease) Depression Family history of esophageal cancer Heart disease High cholesterol Otitis media of both ears PTSD (post-traumatic stress disorder) Rheumatoid arthritis Family History Family History Mother Renal cell carcinoma Other Asthma Cerebrovascular accident Depression Diabetes mellitus Family history of arthritis Family history of cardiovascular disease Hypertension Social History Social History Smoking packs per day: 1 Smoking cigarettes per day: 20.0 Years smoked: 40 Smoking pack-years: 40.00 Smoking status: Current every day smoker Tobacco type: cigarettes Additional smoking assessment comments: PT ON CHANTIX TO STOP SMOKING Alcohol intake: current Drinks per week: 1 Substance use: never Living arrangements: alone Additional occupation/education comments: [employer] Gender identity (if verbalized by the patient): Female Spiritual care concerns: No Anes - Eval Final PreProcedure Day of Procedure 03/12/21 12:18 Patient weight: overweight Heart: regular rate and rhythm Lungs: clear to auscultation Airway: Mallampati scale class II Neurological: alert and oriented Last oral intake: >/= 8 hours ASA classification: III Emergent: no Anesthetic plan: proceed Anesthesia type and monitoring: general GIVS and standard monitoring Informed Consent: The patient's anesthetic plan and its attendant risks and benefits were discussed with the patient/family/POA. Questions were solicited and answers provided to the satisfaction of the patient/family/POA.
[2021-03-12] MEDS: LACTATED RINGERS 1,000 ML 150 ML IV CONT (12:23)
--- NOTE | 2021-03-12 12:39 | PM.HPGS ---
History of Present Illness History of Present Illness Consent: Risks, benefits, and alternatives have been discussed and questions answered. Patient agrees to proceed with procedure. Chief complaint: neoplasm screening, GERD Narrative: Kenzie Camara is a 60 year old female with gerd on omeprazole but never had egd and sister from esophageal cancer, her last colonoscopy 10 years ago Review of Systems Constitutional: Constitutional: Denies headache(s) and Denies weakness Eyes: Eyes: Denies blurry vision ENT: Reports Normal hearing present, Denies headache(s) and Denies neck pain Cardiovascular: Cardiovascular: Denies chest pain and Denies dyspnea Respiratory: Respiratory: Denies dyspnea Gastrointestinal: Gastrointestinal: Reports no additional gastrointestinal complaints Genitourinary: Genitourinary: Denies dysuria Musculoskeletal: Musculoskeletal: Denies neck pain Integumentary/Breasts: Skin/Breast: Denies dry skin Neurologic: Reports Normal hearing present, Denies headache(s) and Denies weakness Psychiatric: Psychiatric: Denies anxiety Endocrine: Endocrine: Denies change in body appearance Hematologic/Lymphatic: Hematologic/Lymphatic: Denies easy bleeding Allergic/Immunologic: Allergic/Immunologic: Denies urticaria PMFSH Past Medical History Medical History (Updated 03/12/21 @ 12:40 by Earl Lindquist MD) Adverse effect of chemotherapy Asthma Colon cancer screening COPD (chronic obstructive pulmonary disease) Depression Family history of esophageal cancer Heart disease High cholesterol Otitis media of both ears PTSD (post-traumatic stress disorder) Rheumatoid arthritis Family History Family History Mother Renal cell carcinoma Other Asthma Cerebrovascular accident Depression Diabetes mellitus Family history of arthritis Family history of cardiovascular disease Hypertension Social History Social History Smoking packs per day: 1 Smoking cigarettes per day: 20.0 Years smoked: 40 Smoking pack-years: 40.00 Smoking status: Current every day smoker Tobacco type: cigarettes Additional smoking assessment comments: PT ON CHANTIX TO STOP SMOKING Alcohol intake: current Drinks per week: 1 Substance use: never Living arrangements: alone Additional occupation/education comments: [employer] Gender identity (if verbalized by the patient): Female Spiritual care concerns: No Meds Home Medications and Allergies Home Medications Medication Instructions Recorded Confirmed Type aspirin 325 mg PO DAILY 10/14/19 03/12/21 History alprazolam 0.25 mg PO BID PRN 11/14/19 03/12/21 History bupropion HCl 300 mg PO QAM 11/14/19 03/12/21 History quetiapine 200 mg PO HS 11/14/19 03/12/21 History anastrozole 1 mg PO DAILY 02/07/20 03/12/21 History diphenoxylate-atropine [Lomotil] 1 tablet PO TID PRN 02/07/20 03/12/21 History ipratropium-albuterol 3 ml INHALATION QID PRN 02/07/20 03/12/21 History atorvastatin 20 mg tablet 20 mg PO DAILY 90 Days #90 tablet 04/17/20 03/12/21 Rx albuterol sulfate 90 mcg/actuation 2 puff INHALATION Q4H PRN #18 g 07/23/20 03/12/21 Rx aerosol inhaler duloxetine 60 mg capsule,delayed 60 mg PO DAILY cap 08/29/20 03/12/21 History release sodium,potassium,mag sulfates 17.5 See Rx Instructions PO .COMPLEX 01/30/21 03/12/21 Rx gram-3.13 gram-1.6 gram oral soln #354 ml sod picosulf 10 mg-magnes 3.5 160 ml PO BID #160 ml 01/31/21 03/12/21 Rx gram-citric 12 gram/160 mL oral solution varenicline [Chantix] 1 mg PO BID 03/07/21 03/12/21 History Allergies Allergy/AdvReac Type Severity Reaction Status Date / Time Sulfa (Sulfonamide Allergy Mild Rash Verified 03/12/21 12:13 Antibiotics) Vital Signs Vital Signs - 24 hr 03/12/21 12:15 Temperature 96.3 F L Pulse Rate 117 H Respiratory Rate 16
[2021-03-12] MEDS: BENZOCAINE (*SP) 60 ML SPRAY CAN (HURRICAINE) 1 SPRAY MUCOUS MEM (12:46)
--- NOTE | 2021-03-12 13:14 | SUR.OPER ---
EGD start 1248, ended 1253. Colon start 1259, ended 1311.
[2021-03-12 13:15] VITALS: BP 133/67; PULSE 93; RESP 23; O2SAT 96
[2021-03-12 13:25] VITALS: BP 135/84; PULSE 89; RESP 16; O2SAT 96
[2021-03-12 13:35] VITALS: BP 138/92; PULSE 87; RESP 25; O2SAT 99
== END 2021-03-12 13:43 | disposition home or self-care (01) ==
PROVIDERS: PCP Internal Medicine; Visit Provider Internal Medicine Gastroenterology
PROC: 0DJ08ZZ Inspection of Upper Intestinal Tract, Via Natural or Artificial Opening Endoscopic (ICD-10-PCS; CPT 43235; principal; 2021-03-12 13:15)
DX: Z12.11 Encounter for screening for malignant neoplasm of colon (principal); K29.50 Unspecified chronic gastritis without bleeding; K63.5 Polyp of colon; K21.00 Gastro-esophageal reflux disease with esophagitis, without bleeding; K57.30 Diverticulosis of large intestine without perforation or abscess without bleeding; K64.8 Other hemorrhoids; Z79.82 Long term (current) use of aspirin; Z79.51 Long term (current) use of inhaled steroids; J44.9 Chronic obstructive pulmonary disease, unspecified; G43.909 Migraine, unspecified, not intractable, without status migrainosus; F32.9 Major depressive disorder, single episode, unspecified; I51.9 Heart disease, unspecified; E78.00 Pure hypercholesterolemia, unspecified; F43.10 Post-traumatic stress disorder, unspecified; M06.9 Rheumatoid arthritis, unspecified
CPT/HCPCS: 45381; 45385; 43239; 87081; 88305; J2704; J7120

== ENCOUNTER → 2021-06-21 17:01 | Outpatient (CLI) | payer BC, SELFPAY ==
--- NOTE | ~2021-06-21 | MM_ITS ---
EXAMINATION: MM screening aby BI w kwaku HISTORY: Screening TECHNIQUE: Craniocaudal and mediolateral oblique 3-D tomosynthesis images were obtained and synthetic 2-D images were generated. CAD analysis was submitted and interpreted. COMPARISON: Comparison to multiple prior studies sequentially, with oldest reviewed study dated 02/2019. BREAST PARENCHYMAL COMPOSITION: The breasts are heterogeneously dense, which may obscure small masses . FINDINGS: There is no evidence of suspicious mass, calcification, or architectural distortion to sugg est malignancy in either breast. There has been no suspicious interval change. IMPRESSION: 1. No mammographic evidence of malignancy. 2. Recommend routine screening mammography in one year. BI-RADS Category 1: Negative Reviewed, dictated and finalized at location A.
== END ==
PROVIDERS: PCP Internal Medicine; Visit Provider Internal Medicine Hematology & Oncology
DX: Z12.31 Encounter for screening mammogram for malignant neoplasm of breast (principal)
CPT/HCPCS: 77063; 77067

== ENCOUNTER → 2021-07-22 03:52 | Outpatient (CLI) | payer BC, SELFPAY ==
[2021-07-22 20:20] LABS: SARS-CoV-2 RNA PCR Positive
== END ==
PROVIDERS: PCP Internal Medicine; Visit Provider Surgery
DX: U07.1 COVID-19 (principal)
CPT/HCPCS: C9803; U0003; U0005

== ENCOUNTER 2021-08-08 00:46 | Day surgery (SDC) | payer BC, SELFPAY ==
[2021-07-18 09:16] VITALS: BMI 25.8
--- NOTE | 2021-08-01 13:39 | PC.NURSE ---
Pt states new medication of a prednisone dose pack and Covid positive test on 07/22. Pt reports only symptom was a cough. No other changes in medications or health history since initial interview. New pre-op instructions reviewed with pt. Pt denies questions at this time.
--- NOTE | 2021-08-07 10:50 | WPDANESEPPF ---
Anes - Initial Pre Proc Eval Procedure: Operation Date: 08/08/21 12:00 Proposed Procedures p Removal Erick Cath - Majo Kevin MD Date/Time: 08/07/21 10:51 Surgeon: Majo Kevin MD Pre Op Diagnosis: hx of breast cancer Patient Data Age: 60 Gender: F Height: 1.78 m Weight: 81.65 kg Allergies Allergy/AdvReac Type Severity Reaction Status Date / Time Sulfa (Sulfonamide Allergy Mild Rash Verified 08/08/21 10:00 Antibiotics) Home Medications Medication Instructions Recorded Confirmed Type alprazolam 0.25 mg PO BID PRN 11/14/19 08/08/21 History bupropion HCl 150 mg PO BID 11/14/19 08/08/21 History quetiapine 200 mg PO HS 11/14/19 08/08/21 History anastrozole 1 mg PO DAILY 02/07/20 08/08/21 History diphenoxylate-atropine [Lomotil] 1 tablet PO TID PRN 02/07/20 08/08/21 History ipratropium-albuterol 3 ml INHALATION QID PRN 02/07/20 08/08/21 History atorvastatin 20 mg tablet 20 mg PO DAILY 90 Days #90 tablet 04/17/20 08/08/21 Rx albuterol sulfate 90 mcg/actuation 2 puff INHALATION Q4H PRN #18 g 07/23/20 08/08/21 Rx aerosol inhaler duloxetine 60 mg capsule,delayed 60 mg PO DAILY cap 08/29/20 08/08/21 History release aripiprazole [Abilify] 5 mg PO DAILY 07/18/21 08/08/21 History naproxen sodium 220 mg PO BID 07/18/21 08/08/21 History omeprazole 40 mg PO BID 07/18/21 08/08/21 History ondansetron HCl [Zofran] 4 mg PO Q6H PRN 07/18/21 08/08/21 History prednisone 0 mg PO PER PKG DIR 08/01/21 08/08/21 History Patient hx anesthesia problems: none Family hx anesthesia problems: none Results Review: All pre-operative results and documents have been reviewed as part of the pre-operative evaluation. [facility] Past Medical History Medical History (Updated 03/12/21 @ 12:40 by Earl Lindquist MD) Adverse effect of chemotherapy Asthma Colon cancer screening COPD (chronic obstructive pulmonary disease) Depression Family history of esophageal cancer Heart disease High cholesterol Otitis media of both ears PTSD (post-traumatic stress disorder) Rheumatoid arthritis Surgical History Surgical History (Updated 08/07/21 @ 10:51 by Nakul Gaines DO) H/O cardiac radiofrequency ablation Family History Family History Mother Renal cell carcinoma Other Asthma Cerebrovascular accident Depression Diabetes mellitus Family history of arthritis Family history of cardiovascular disease Hypertension Social History Social History Smoking packs per day: 1 Smoking cigarettes per day: 20.0 Years smoked: 40 Smoking pack-years: 40.00 Smoking status: Current every day smoker Tobacco type: cigarettes Alcohol intake: current Alcohol use details: socially Substance use: never Substance use type: does not use Living arrangements: alone Additional occupation/education comments: [employer] Gender identity (if verbalized by the patient): Female Spiritual care concerns: No Anes - Eval Final PreProcedure Day of Procedure 08/07/21 10:51 Patient weight: overweight Heart: regular rate and rhythm Lungs: clear to auscultation and normal air movement Airway: Mallampati scale class II Neurological: alert and oriented Last oral intake: >/= 8 hours ASA classification: III Emergent: no Anesthetic plan: proceed Anesthesia type and monitoring: general GIVS and standard monitoring Results Review: All pre-operative results and documents have been reviewed as part of the pre-operative evaluation. Informed Consent: The patient's anesthetic plan and its attendant risks and benefits were discussed with the patient/family/POA. Questions were solicited and answers provided to the satisfaction of the patient/family/POA.
[2021-08-08] MEDS: LACTATED RINGERS 1,000 ML 30 ML IV CONT (10:19)
[2021-08-08 10:28] VITALS: BP 124/77; PULSE 88; RESP 16; TEMP 36.6; O2SAT 98
--- NOTE | 2021-08-08 11:53 | PM.IMHP ---
H&P: HPI History of Present Illness Date/Time: 08/08/21 11:53 Pt presents for removal of L sided VAD. Pt had VAD placed in 2019 for chemo access. Pt s/p treatment for R breast cancer. Pt reports no issues c VAD over that time. Chief Complaint: R breast cancer Review of Systems Review of Systems: All systems reviewed & are unremarkable except as noted in HPI and below PMFSH Past Medical History Medical History Adverse effect of chemotherapy Asthma Colon cancer screening COPD (chronic obstructive pulmonary disease) Depression Family history of esophageal cancer Heart disease High cholesterol Otitis media of both ears PTSD (post-traumatic stress disorder) Rheumatoid arthritis Surgical History Surgical History H/O cardiac radiofrequency ablation Family History Family History Mother Renal cell carcinoma Other Asthma Cerebrovascular accident Depression Diabetes mellitus Family history of arthritis Family history of cardiovascular disease Hypertension Social History Social History Smoking packs per day: 1 Smoking cigarettes per day: 20.0 Years smoked: 40 Smoking pack-years: 40.00 Smoking status: Current every day smoker Tobacco type: cigarettes Alcohol intake: current Alcohol use details: socially Substance use: never Substance use type: does not use Living arrangements: alone Additional occupation/education comments: [employer] Gender identity (if verbalized by the patient): Female Spiritual care concerns: No Meds Home Medications and Allergies Home Medications Medication Instructions Recorded Confirmed Type alprazolam 0.25 mg PO BID PRN 11/14/19 08/08/21 History bupropion HCl 150 mg PO BID 11/14/19 08/08/21 History quetiapine 200 mg PO HS 11/14/19 08/08/21 History anastrozole 1 mg PO DAILY 02/07/20 08/08/21 History diphenoxylate-atropine [Lomotil] 1 tablet PO TID PRN 02/07/20 08/08/21 History ipratropium-albuterol 3 ml INHALATION QID PRN 02/07/20 08/08/21 History atorvastatin 20 mg tablet 20 mg PO DAILY 90 Days #90 tablet 04/17/20 08/08/21 Rx albuterol sulfate 90 mcg/actuation 2 puff INHALATION Q4H PRN #18 g 07/23/20 08/08/21 Rx aerosol inhaler duloxetine 60 mg capsule,delayed 60 mg PO DAILY cap 08/29/20 08/08/21 History release aripiprazole [Abilify] 5 mg PO DAILY 07/18/21 08/08/21 History naproxen sodium 220 mg PO BID 07/18/21 08/08/21 History omeprazole 40 mg PO BID 07/18/21 08/08/21 History ondansetron HCl [Zofran] 4 mg PO Q6H PRN 07/18/21 08/08/21 History prednisone 0 mg PO PER PKG DIR 08/01/21 08/08/21 History Allergies Allergy/AdvReac Type Severity Reaction Status Date / Time Sulfa (Sulfonamide Allergy Mild Rash Verified 08/08/21 10:00 Antibiotics) Vital Signs Vital Signs - 24 hr 08/08/21 10:28 Temperature 36.6 C Pulse Rate 88 Respiratory Rate 16 Blood Pressure 124/77 Pulse Oximetry 98 Exam Const: General: cooperative, comfortable and no acute distress Chest: Chest palpation & inspection: normal inspection of the chest Other: L VAD - C/D/I Resp: Effort & Inspection: normal respiratory effort Auscultation: clear to auscultation bilaterally Cardio: Rate: regular rate Rhythm: regular rhythm GI: Inspection: normal to inspection and non-distended GI Palp: Yes Soft to palpation and No Tenderness to palpation present (GI) Assessment and Plan Assessment and plan (1) Breast CA: Code(s): C50.919 - Malignant neoplasm of unspecified site of unspecified female breast Status: Acute Assessment and Plan: s/p treatment, will proceed c removal in OR
--- NOTE | 2021-08-08 11:55 | WPDHPUPDATE1 ---
History and Physical Update Update Date/Time: 08/08/21 11:55 History and Physical has been reviewed, including an updated exam of the patient. There are NO changes in the patient's condition. Risks, benefits, and alternatives have been discussed and questions answered. Patient agrees to proceed with procedure.
[2021-08-08] MEDS: BUPIVACAINE HCL 0.5% PF 30 ML VIAL INFILTRATE (12:02)
[2021-08-08 12:18] VITALS: BP 117/67; PULSE 87; RESP 17; O2SAT 97
--- NOTE | 2021-08-08 12:22 | P.OP_ITS ---
Procedure Note - Detailed Date of Procedure 08/08/21 Pre-op Diagnosis hx of breast cancer Post-op Diagnosis same Procedure Performed removal of [facility] venous access device Surgeon Majo Kevin MD Anesthesia MAC and local Indications 60 y/o F s/p treatment of R breast cancer. Pt had VAD placed in 2019 for chemo access. Findings [facility] VAD Description of Procedure The patient was taken to the operating room and placed in the supine position. The patient was then prepped and draped in the normal sterile fashion. A time- out was then done to verify the patient's identity, as well as the procedure being performed. I began by localizing the area of the previously placed port in the left chest. After the area was adequately anesthetized, I made an incision through the previous incision to gain access to the port in the subcutaneous tissue. I was then able to identify the port and using dissection with the Bovie cautery, I was able to free the reservoir from the subcutaneous pocket. The reservoir was being held in by 2 sutures and these were subsequently cut. I was then able to remove the reservoir from the pocket. I then removed the catheter from the left internal jugular vein in full. I then held pressure at the level the left internal jugular vein for approximately 5 minutes. Hemostasis was noted and I irrigated the pocket. I then closed the subcutaneous tissue with 3-0 Vicryl suture. The skin was closed with 4-0 Monocryl subcuticular suture. Dermabond was placed on the wound. The patient tolerated the procedure well and was alert and awake in the operating room postoperative. The patient will be sent to the recovery room in stable condition. Estimated Blood Loss 5 Drains No Packing No Pathology none sent Complications No immediate complications Condition stable Disposition PACU
[2021-08-08 12:50] VITALS: BP 126/69; PULSE 86; RESP 16
== END 2021-08-08 12:55 | disposition home or self-care (01) ==
PROVIDERS: PCP Internal Medicine; Visit Provider Surgery
PROC: (CPT 36589; principal; 2021-08-08 12:00)
DX: Z45.2 Encounter for adjustment and management of vascular access device (principal); Z85.3 Personal history of malignant neoplasm of breast; J45.909 Unspecified asthma, uncomplicated; J44.9 Chronic obstructive pulmonary disease, unspecified; F32.9 Major depressive disorder, single episode, unspecified; I51.9 Heart disease, unspecified; E78.00 Pure hypercholesterolemia, unspecified; F43.10 Post-traumatic stress disorder, unspecified; M06.9 Rheumatoid arthritis, unspecified; F17.210 Nicotine dependence, cigarettes, uncomplicated; Z79.51 Long term (current) use of inhaled steroids
CPT/HCPCS: 36590; J2704; J7120

== ENCOUNTER 2022-03-27 19:27 | Observation (INO) | payer BC, SELFPAY ==
--- NOTE | ~2022-03-27 | US_ITS ---
EXAMINATION: US carotid duplex BI DATE: 03/28/2022 10:25 INDICATION: Slurred speech. Stroke protocol. TECHNIQUE: Grayscale, color Doppler, and pulsed Doppler images of the cervical carotid arteries were obtained. The degree of vessel stenosis is placed in one of the following categories: normal, <50%, 5 0-69%, >=70% but less than near-occlusion, near-occlusion, or total occlusion. Note that percent sten osis relative to normal distal artery lumen diameter is indirectly measured from velocity measurement s as described by Jimmie, et al. Radiology 2003; 229:340-346. COMPARISON: None. FINDINGS: RIGHT: The right common carotid artery (CCA) peak systolic velocity (PSV) is 64 cm/s. The right internal car otid artery (ICA) PSV is 69 cm/s. The right ICA end-diastolic velocity (EDV) is 26 cm/s. The right IC A/CCA PSV ratio is 1.1. Grayscale and color Doppler images yield an estimate of <50% diameter reducti on from plaque in the ICA. The external carotid artery (ECA) PSV is 81 cm/s. There is antegrade flow in the right vertebral artery. LEFT: The left CCA PSV is 78 cm/s. The left ICA PSV is 89 cm/s. The left ICA EDV is 29 cm/s. The left ICA/C CA PSV ratio is 1.1. Grayscale and color Doppler images yield an estimate of <50% diameter reduction from plaque in the ICA. The ECA PSV is 82 cm/s. There is antegrade flow in the left vertebral artery. IMPRESSION: 1. <50% stenosis in the right internal carotid artery. 2. <50% stenosis in the left internal carotid artery. Reviewed, dictated and finalized at location A.
--- NOTE | ~2022-03-27 | CT_ITS ---
EXAMINATION: CT brain wo con DATE: 03/27/2022 19:40 INDICATION: Cerebrovascular accident TECHNIQUE: Computed tomography (CT) of the head was performed without intravenous contrast. The mA wa s adjusted according to patient size. Iterative reconstruction technique was employed. Exam dose: 60 5.33 mGy-cm total exam DLP. COMPARISON: None FINDINGS: No intracranial mass lesion or hemorrhage or cerebrovascular accident. No midline shift or mass effect effect. No subdural or epidural hematoma. Bilateral carotid siphon internal carotid artery and mild vertebral artery calcification is noted. Th ere is nonspecific diminished attenuation of the cerebral white matter, likely due to chronic small v essel ischemic changes. Normal ventricular size. The orbits are unremarkable. The paranasal sinuses and mastoid air cells are unremarkable. No fracture or bone destruction of the cranial vault. IMPRESSION: Cerebral atherosclerosis and chronic small vessel ischemic changes of the cerebral white matter No acute intracranial finding or hemorrhage Dr. Antoine telephoned the report to emergency room physician Dr. Pizarro on 03/27/2022 at 1954 hours Reviewed, dictated and finalized at Location [facility]. Reviewed, dictated and finalized at location A. IMPRESSION: Cerebral atherosclerosis and chronic small vessel ischemic changes of the cerebral white matter No acute intracranial finding or hemorrhage Dr. Antoine telephoned the report to emergency room physician Dr. Pizarro on 2021 at 1954 hours
--- NOTE | ~2022-03-27 | XR_ITS ---
XR chest 1V portable DATE: 03/27/2022 19:56 INDICATION: Cerebrovascular accident. History of asthma, heart disease TECHNIQUE: Portable AP chest on 03/27/2022 at 1953 hours COMPARISON: 08/13/2020 CT lung screening 03/12/2020 PA chest FINDINGS: Normal heart size. Aortic unfolding. No hilar or mediastinal enlargement. Cannot exclude 2 mm right upper lobe mass; alternatively, this might be related to the first costocho ndral junction. Consider CT thorax examination. Minimal atelectasis at the left lung base. The lungs otherwise appear clear of infiltrate or consolidation. No pleural effusion or pulmonary vascular congestion or pneumothorax. IMPRESSION: Cannot exclude 12 mm right upper lobe mass versus first costochondral junction; consider CT thorax Minimal infiltrate at left lung base Reviewed, dictated and finalized at location A. IMPRESSION: Cannot exclude 12 mm right upper lobe mass versus first costochondr al junction; consider CT thorax Minimal infiltrate at left lung base
--- NOTE | ~2022-03-27 | CT_ITS ---
EXAMINATION: CT diagnostic chest wo con DATE: 03/27/2022 20:58 INDICATION: TECHNIQUE: Computed tomography (CT) of the chest was performed without intravenous contrast. Automate d exposure control and iterative reconstruction technique were employed. Exam dose: 182.05 mGy-cm to em exam DLP. COMPARISON: None FINDINGS: There is peripheral pleural based 6 x 5 mm right upper lobe nodule. Repeat CT thorax examin ation in 6 months is recommended. No pulmonary infiltrate or consolidation. No other pulmonary mass lesion is noted. No hilar or mediastinal mass lesion or lymphadenopathy is detected. Normal caliber of the thoracic ao rta. Normal heart size. No pericardial or pleural effusion. Included skeletal structures are unremarkable. IMPRESSION: 6 x 8 mm peripheral posterior right upper lobe pulmonary nodule; six-month follow-up CT imaging is recommended Reviewed, dictated and finalized at Location [facility]. Reviewed, dictated and finalized at location A. IMPRESSION: 6 x 8 mm peripheral posterior right upper lobe pulmonary nodule; s ix-month follow-up CT imaging is recommended
--- NOTE | ~2022-03-27 | MR_ITS ---
EXAMINATION: MR brain/brain stem wo/w con DATE: 03/28/2022 09:22 INDICATION: Slurred speech. Stroke. TECHNIQUE: Magnetic resonance imaging (MRI) of the brain and brainstem was performed without and with 17 mL MultiHance intravenous contrast. COMPARISON: Head CT 03/27/2022 FINDINGS: There is no intracranial hemorrhage, acute infarction, or abnormal intracranial mass lesion . The ventricles are normal in size. There is mild mucosal thickening in the ethmoid sinuses. There i s a trace right mastoid effusion. The orbits are normal. There are multiple calcified masses in the s calp, likely benign. IMPRESSION: 1. Normal brain. Reviewed, dictated and finalized at location D. IMPRESSION: 1. Normal brain.
--- NOTE | 2022-03-27 19:22 | ECG_ITS ---
Measurements Intervals [facility] Rate: 118 P: 66 SD: 128 QRS: -15 QRSD: 90 T: 92 QT: 340 QTc: 478 Interpretive Statements SINUS TACHYCARDIA POSSIBLE RIGHT VENTRICULAR CONDUCTION DELAY [RSR (QR) IN V1/V2] NONSPECIFIC ST & T-WAVE ABNORMALITY ABNORMAL ECG NO PREVIOUS ECG AVAILABLE FOR COMPARISON Electronically Signed On 03-28-2022 14:35:32 CDT by Juan Miller M.D.
--- NOTE | 2022-03-27 19:24 | ED.NEUROSD ---
HPI - Neuro Symptoms/Deficit General Chief Complaint: Altered Mental Status Stated Complaint: CODE STROKE History of Present Illness HPI Narrative: The patient is a 61-year-old female with history of COPD, depression, acid reflux, breast cancer, presenting to the emergency department for evaluation of disorientation, confusion, slurred speech. Patient was noted to be confused at a bin sims by a friend. Patient apparently had driven herself to the sims. Patient's friend last spoken to the patient 2 days ago when she was normally acting. At the time of assessment by EMS, they felt her speech was slurred and she arrived to emergency department as a code stroke. At the time of my assessment, patient is awake, alert to person, place, and to time. She is intermittently confused but understands she is at a hospital can state the date, year, president. She denies any pain. She reports she has been drinking alcohol today. She denies any unilateral weakness or numbness. Patient otherwise history limited secondary to some mild disorientation. Related Data Home Medications Medication Instructions Recorded Confirmed alprazolam 0.25 mg tablet 0.25 mg PO BID PRN Anxiety 11/14/19 08/08/21 bupropion HCl 300 mg 24 hr tablet, 150 mg PO BID 11/14/19 08/08/21 extended release quetiapine 200 mg tablet 200 mg PO HS 11/14/19 08/08/21 anastrozole 1 mg tablet 1 mg PO DAILY 02/07/20 08/08/21 diphenoxylate-atropine 2.5 1 tablet PO TID PRN Diarrhea 02/07/20 08/08/21 mg-0.025 mg tablet (Lomotil) ipratropium 0.5 mg-albuterol 3 mg 3 ml inhalation QID PRN Allergy 02/07/20 08/08/21 (2.5 mg base)/3 mL nebulization Symptoms soln duloxetine 60 mg capsule,delayed 60 mg PO DAILY 08/29/20 08/08/21 release aripiprazole 5 mg tablet (Abilify) 5 mg PO DAILY 07/18/21 08/08/21 naproxen sodium 220 mg capsule 220 mg PO BID 07/18/21 08/08/21 omeprazole 40 mg capsule,delayed 40 mg PO BID 07/18/21 08/08/21 release ondansetron HCl 4 mg tablet 4 mg PO Q6H PRN Nausea 07/18/21 08/08/21 (Zofran) prednisone 10 mg tablets in a dose 0 mg PO PER PKG DIR 08/01/21 08/08/21 pack Allergies Allergy/AdvReac Type Severity Reaction Status Date / Time Sulfa (Sulfonamide Allergy Mild Rash Verified 08/08/21 10:00 Antibiotics) Review of Systems Review of Systems: CONSTITUTIONAL: Denies fever CARDIOVASCULAR: Denies chest pain RESPIRATORY: Denies cough or dyspnea. GASTROINTESTINAL: Denies abdominal pain SKIN: Denies rash MUSCULOSKELETAL: Denies back pain NEUROLOGIC: Denies headache, reports slurred speech PMF Past Medical History Medical History Adverse effect of chemotherapy Asthma Colon cancer screening COPD (chronic obstructive pulmonary disease) Depression Family history of esophageal cancer Heart disease High cholesterol Otitis media of both ears PTSD (post-traumatic stress disorder) Rheumatoid arthritis Surgical History Surgical History H/O cardiac radiofrequency ablation Family History Family History Mother Renal cell carcinoma Other Asthma Cerebrovascular accident Depression Diabetes mellitus Family history of arthritis Family history of cardiovascular disease Hypertension Social History Social History Smoking packs per day: 1 Smoking cigarettes per day: 20.0 Years smoked: 40 Smoking pack-years: 40.00 Smoking status: Current every day smoker Tobacco type: cigarettes Alcohol intake: current Alcohol use details: socially Substance use: never Substance use type: does not use Additional occupation/education comments: [employer] Gender identity (if verbalized by the patient): Female Spiritual care concerns: No Exam Narrative: GENERAL: Awake, alert, conversant HEAD: Normocephalic,
[2022-03-27 19:30] VITALS: BP 119/75; PULSE 123; RESP 24; TEMP 36.8; O2SAT 94
[2022-03-27 19:51] LABS: Glucose Point of Care 149 mg/dl (65-105)
[2022-03-27 19:54] LABS: Basophils Percent Auto 0.6 % (0.2-1.2); Eosinophils Absolute Auto 0.1 K/mm3 (0-0.3); Eosinophils Percent Auto 0.8 % (0-4.4); Hematocrit 37.7 % (37.0-47.0); Hemoglobin 12.3 g/dL (12.0-15.0); Immature Granulocyte Absolute 0.04 K/mm3 (0.00-0.031); Immature Granulocyte Percent A 0.6 % (0-0.5); Lymphocytes Absolute Auto 0.98 K/mm3 (0.9-3.2); Lymphocytes Percent Auto 14.7 % (18.3-44.2); Mean Corpuscular HGB Conc 32.6 g/dl (32-36); Mean Corpuscular Hemoglobin 29.9 pg (26-34); Mean Corpuscular Volume 91.5 fl (80-100); Mean Platelet Volume 9.5 fl (7.4-10.4); Monocytes Absolute Auto 0.4 K/mm3 (0.1-0.6); Monocytes Percent Auto 6.6 % (2.6-8.5); Neutrophils Absolute Auto 5.1 K/mm3 (1.3-6.7); Neutrophils Percent Auto 76.7 % (45.5-73.1); Platelet Count Result 257 k/mm3 (150-375); Red Blood Count 4.12 M/mm3 (4.2-5.4); Red Cell Distribution Width 15.9 % (11.5-14.5); White Blood Count 6.7 K/mm3 (4.5-10.0)
[2022-03-27 20:06] LABS: INR 1.1; Prothrombin Time 13.5 Seconds (11.1-14.7)
[2022-03-27 20:07] LABS: Partial Thromboplastin Time 25.9 SECONDS (22.3-36.8)
[2022-03-27 20:19] LABS: Troponin I < 0.012 ng/mL (0.000-0.034)
[2022-03-27 20:34] LABS: Alanine Aminotransferase 18 U/L (6-35); Albumin Level 4.3 g/dL (3.5-5.1); Alkaline Phosphatase 87 U/L (38-126); Anion Gap 13 mmol/L (8-16); Aspartate Amino Transferase 20 U/L (14-36); Bilirubin,Total 0.2 mg/dL (0.2-1.3); Blood Urea Nitrogen 18 mg/dL (7-17); Calcium 8.8 mg/dL (8.4-10.2); Carbon Dioxide 20 mmol/L (22-30); Chloride 107 mmol/L (98-107); Estimated CRCL calculation 61 ml/min; Estimated Glomerular Filt Rate 56; Glucose 131 mg/dL (65-110); Potassium 3.5 mmol/L (3.4-5.0); Sodium 140 mmol/L (137-145)
[2022-03-27] MEDS: SODIUM CHLORIDE 0.9% IV 1,000 ML 999 ML IV CONT (20:38)
[2022-03-27 21:08] LABS: Ethanol < 10 mg/dL (<10)
[2022-03-27 21:38] LABS: SARS-CoV-2 RNA PCR Negative
--- NOTE | 2022-03-27 22:24 | PM.IMHP ---
H&P: HPI History of Present Illness Date/Time: 03/27/22 22:24 Chief Complaint: Slurred speech Narrative: This is a 61-year-old female with past medical history significant for breast cancer of the right breast, with breast conservation therapy currently on hormonal treatment, COPD/emphysema, patient smokes 2 packs of cigarettes daily. Patient was playing bingo today when she was noted to have slurred speech and finding words difficulty. There was no loss of consciousness no facial drooling no incontinence of sphincters, no focal sensorimotor deficit. Patient has been in her usual state of health up until this moment she denies any fevers, rigors, chills, nausea, vomiting, abdominal pain, diarrhea, chest pain, shortness of breath, cough, sputum production, no leg swelling, no PND, no orthopnea. Preliminary workup has been essentially nonrevealing CT of the head did not show acute intracranial abnormality. Patient has been admitted for further evaluation management and treatment. Review of Systems Review of Systems: Slurred speech, word-finding difficulty. Constitutional: Constitutional: Denies chills, Denies fatigue, Denies fever(s), Denies frequent falls, Denies headache(s), Denies malaise, Denies night sweats and Denies weakness Eyes: Eyes: Denies change in vision ENT: Denies dysphagia, Denies vertigo, Denies dizziness, Denies headache(s), Denies odynophagia and Denies disequilibrium Cardiovascular: Cardiovascular: Denies chest pain, Denies syncope, Denies pedal edema, Denies irregular heart rhythm, Denies claudication, Denies lightheadedness, Denies radiating jaw, neck or arm pain, Denies palpitations, Denies dyspnea on exertion, Denies orthopnea and Denies paroxysmal nocturnal dyspnea Respiratory: Respiratory: Denies change in phlegm color, Denies chest congestion, Denies cough and Denies excessive phlegm production Gastrointestinal: Gastrointestinal: Denies abdominal pain, Denies dyspepsia, Denies heartburn, Denies diarrhea, Denies nausea and Denies vomiting Genitourinary: Genitourinary: Reports no additional female genitourinary complaints and Reports as per HPI Musculoskeletal: Musculoskeletal: Denies myalgias, Denies joint swelling, Denies neck pain and Denies numbness Integumentary/Breasts: Skin/Breast: Denies rash Neurologic: Denies vertigo, Denies dizziness, Denies focal weakness and Denies Sensory deficit (Neuro) Psychiatric: Psychiatric: Reports no additional psychiatric complaints and Reports as per HPI Endocrine: Endocrine: Denies cold intolerance, Denies fatigue, Denies flushing, Denies heat intolerance, Denies polyphagia, Denies polydipsia and Denies palpitations Hematologic/Lymphatic: Hematologic/Lymphatic: Reports no additional hematologic/lymphatic complaints and Reports as per HPI Allergic/Immunologic: Allergic/Immunologic: Reports no additional allergic/immunologic complaints and Reports as per HPI PMFSH Past Medical History Medical History Adverse effect of chemotherapy Asthma Colon cancer screening COPD (chronic obstructive pulmonary disease) Depression Family history of esophageal cancer Heart disease High cholesterol Otitis media of both ears PTSD (post-traumatic stress disorder) Rheumatoid arthritis Surgical History Surgical History H/O cardiac radiofrequency ablation Family History Family History (Updated 03/28/22 @ 05:04 by Dee Ram RN) Mother Renal cell carcinoma Father Family history of cardiovascular disease Other Asthma Cerebrovascular accident Depression Diabetes mellitus Family history of arthritis Hypertension Social History Social History Smoking packs per day: 1 Smoking cigarettes per day: 20.0 Years smoked: 40 Smoking pack-years: 40.00 Smoking status: Current every day smoker Wong
[2022-03-28] VITALS (8 sets, daily range): BP systolic 121–146; BP diastolic 67–82; PULSE 77–93; RESP 18–20; TEMP 36.4–36.5; O2SAT 94–97
--- NOTE | 2022-03-28 | ECHO_ITS ---
Patient Info Name: Kenzie Camara Age: 61 years : 1960 Gender: Female Ht: 69 in Wt: 197 lbs BSA: 2.11 m2 HR: 87 bpm BP: 146 / 67 mmHg Technical Quality: Poor Exam Date: 03/28/2022 2:14 PM Exam Location: [facility] Patient Status: Outpatient Admit Date: 03/27/2022 Staff Ordering Physician: Ameya Conner Equipment Service Engineer: Areli Patel RDCS Attending Provider: Keith Sarkar MD Referring Physician: Ubaldo KATZ; Exam Type: CA echo dop bubble study w con Study Info Indications - TIA Complete two-dimentional, color flow and Doppler transthoracic echocardiogram is performed with agitated saline and with contrast to opacify the left ventricle and to improve the delineation of the left ventricle endocardial borders. Contrast/Agitated Saline Contrast/Ag. Saline: Definity Amount: 2.00 ml Administered By: Areli Patel RDCS Existing IV Access: Yes IV Access Condition: patent with no signs of infiltration Contrast/Ag. Saline: Agitated Saline Amount: 30.00 ml Administered By: Chanda Hannah RDCS Existing IV Access: Yes IV Access Condition: patent with no signs of infiltration Reason for Poor Study: poor echocardiographic windows Summary 1. Technically suboptimal study due to poor sonographic images. 2. Definity contrast administered improved wall motion interpretation. 3. Left ventricular chamber dimension is normal. 4. Left ventricular systolic function is normal, estimated at 65-70%. 5. The left ventricular diastolic function is grade I diastolic dysfunction. 6. E/e' 9 is minimally elevated. 7. No pulmonary hypertension, estimated pulmonary arterial systolic pressure is 30 mmHg. Left Ventricle E/e' 9 is minimally elevated. Definity contrast administered improved wall motion interpretation. Technically suboptimal study due to poor sonographic images. Left ventricular chamber dimension is normal. Left ventricular systolic function is normal, estimated at 65-70%. The left ventricular diastolic function is grade I diastolic dysfunction. Right Ventricle Right ventricular chamber dimension is normal. Right ventricular systolic function is normal. Left Atria Left atrial chamber dimension is normal. Right Atria Right atrial chamber dimension is normal. Atrial Septum Agitated saline injection with and without valsalva maneuver opacified right cardiac chambers without obvious shunt to left cardiac chambers. Intact interatrial septum visualized by 2D and agitated saline imaging. Aortic Valve The aortic valve is trileaflet. There is no aortic valve stenosis. There is no aortic valve regurgitation. Pulmonic Valve There is no pulmonic regurgitation. Mitral Valve There is no mitral valve stenosis. There is no mitral valve regurgitation. Tricuspid Valve There is no tricuspid valve regurgitation. No pulmonary hypertension, estimated pulmonary arterial systolic pressure is 30 mmHg. Pericardium/Pleural There is no pericardial effusion. Inferior Vena Cava Normal inferior vena cava with >50% collapse upon inspiration consistent with normal right atrial pressure, 5 mmHg. Aorta The aortic root size at the sinus of Valsalva is normal. Left Ventricular Outflow Tract Name Value Normal
[2022-03-28 04:13] LABS: Troponin I < 0.012 ng/mL (0.000-0.034)
--- NOTE | 2022-03-28 04:51 | ADMGEN ---
This patient, Kenzie Camara, was admitted to 3 [facility] Surg Room 304-02 @ 0140 . Patient/family oriented to hospital policies and general routines including ID bracelet, bed and alarms, visiting hours, pain management, procedures, bathroom and other care routines, personal items, smoking policy, room service/diet, and visiting hours. Information on how to activate the Rapid Response Team has been discussed. Patient/Family are encouraged to report perceived risks to care and to ask questions if they do not understand what they are told or what they should do.
[2022-03-28 05:34] LABS: Troponin I < 0.012 ng/mL (0.000-0.034)
--- NOTE | 2022-03-28 10:00 | PM.DS ---
DS: Admitting Diagnosis Discharge Date 03/28/22 1000 Admitting Diagnosis TIA DS: Discharge Diagnosis Discharge Diagnosis (1) TIA (transient ischemic attack): Code(s): G45.9 - Transient cerebral ischemic attack, unspecified Status: Acute Assessment and Plan: Seems to be resolved Said that it was noted from another person but is resolved MRI normal brain Head CT shows no intracranial findings Carotid dopplers <50% stenosis Looks to have been a TIA Neurology on board Currently on a statin Aspirin ordered Plavix for 3 weeks (2) Slurred speech: Code(s): R47.81 - Slurred speech Status: Acute Assessment and Plan: Seems to be resolved Said that it was noted from another person but is resolved MRI normal brain Head CT shows no intracranial findings Carotid dopplers <50% stenosis Looks to have been a TIA (3) Metabolic encephalopathy: Code(s): G93.41 - Metabolic encephalopathy Status: Acute Assessment and Plan: Patient was having noted episodes of confusion Exam the studies came back negative It is reported the patient was drinking Resolved at this time Neurology on board (4) Chronic obstructive pulmonary disease, unspecified: Code(s): J44.9 - Chronic obstructive pulmonary disease, unspecified Status: Acute Assessment and Plan: Seems to be at baseline Smoking education given Patient currently has nebs and albuterol inhalers at home Neb treatments continued (5) Chronic GERD: Code(s): K21.9 - Gastro-esophageal reflux disease without esophagitis Status: Acute Assessment and Plan: Continue home medication (6) Rheumatoid arthritis involving both knees with negative rheumatoid factor: Code(s): M06.061 - Rheumatoid arthritis without rheumatoid factor, right knee; M06.062 - Rheumatoid arthritis without rheumatoid factor, left knee Status: Acute Assessment and Plan: Continue home meds Seems to be stable at this time (7) Tobacco dependence: Code(s): F17.200 - Nicotine dependence, unspecified, uncomplicated Status: Acute Assessment and Plan: Smoking education given to the patient Will prescribe Chantix for discharge DS: Summary Hospital Course Hospital Course: Patient is a 5-year-old female with a past medical history asthma, COPD, depression, PTSD who presented to the hospital with a new onset of slurred speech. Patient stated that it was noted by another person however she does not know her last known normal. Since admission patient's symptoms have resolved. Patient also stated that she was run around the he with her grandson yesterday and thinks that she could have gotten or of heat exertion. Brain MRI was negative and said normal brain. Carotid Doppler showed less than 50% stenosis. Head CT showed no acute intracranial process. Echo showed 65-70% with grade 1 diastolic dysfunction. Patient is currently feeling okay she is asking for neb treatments as she does have some rhonchi however she stated that her norm. She also states that she uses nebulizer treatments and inhalers at home and has no issues with her breathing at this time. She denies any chest pain, shortness of breath, nausea, vomiting, diarrhea, constipation, weakness and fatigue. Neurology consulted and patient was started on an aspirin. Patient is currently also taking a statin will continue that from home. Patient stable for discharge for labs and vital signs. Patient was educated about smoking cessation. Patient is asking for discharge and is ready to go. Time spent discussing smoking cessation with patient: more than 10 minutes Status at Discharge Functional status at discharge: independent ambulation Overall status at discharge: patient is back to baseline Time Spent with Patient Time attestation: Total time spent providing and/or c
--- NOTE | 2022-03-28 10:00 | P.DS_ITS ---
DS: Admitting Diagnosis Discharge Date 03/28/22 1000 Admitting Diagnosis TIA DS: Discharge Diagnosis Discharge Diagnosis (1) TIA (transient ischemic attack): Code(s): G45.9 - Transient cerebral ischemic attack, unspecified Status: Acute Assessment and Plan: * Seems to be resolved * Said that it was noted from another person but is resolved * MRI normal brain * Head CT shows no intracranial findings * Carotid dopplers <50% stenosis * Looks to have been a TIA * Neurology on board * Currently on a statin * Aspirin ordered * Plavix for 3 weeks (2) Slurred speech: Code(s): R47.81 - Slurred speech Status: Acute Assessment and Plan: * Seems to be resolved * Said that it was noted from another person but is resolved * MRI normal brain * Head CT shows no intracranial findings * Carotid dopplers <50% stenosis * Looks to have been a TIA (3) Metabolic encephalopathy: Code(s): G93.41 - Metabolic encephalopathy Status: Acute Assessment and Plan: * Patient was having noted episodes of confusion * Exam the studies came back negative * It is reported the patient was drinking * Resolved at this time * Neurology on board (4) Chronic obstructive pulmonary disease, unspecified: Code(s): J44.9 - Chronic obstructive pulmonary disease, unspecified Status: Acute Assessment and Plan: * Seems to be at baseline * Smoking education given * Patient currently has nebs and albuterol inhalers at home * Neb treatments continued (5) Chronic GERD: Code(s): K21.9 - Gastro-esophageal reflux disease without esophagitis Status: Acute Assessment and Plan: * Continue home medication (6) Rheumatoid arthritis involving both knees with negative rheumatoid factor: Code(s): M06.061 - Rheumatoid arthritis without rheumatoid factor, right knee; M06.062 - Rheumatoid arthritis without rheumatoid factor, left knee Status: Acute Assessment and Plan: * Continue home meds * Seems to be stable at this time (7) Tobacco dependence: Code(s): F17.200 - Nicotine dependence, unspecified, uncomplicated Status: Acute Assessment and Plan: * Smoking education given to the patient * Will prescribe Chantix for discharge DS: Summary Hospital Course Hospital Course: Patient is a 5-year-old female with a past medical history asthma, COPD, depression, PTSD who presented to the hospital with a new onset of slurred speech. Patient stated that it was noted by another person however she does not know her last known normal. Since admission patient's symptoms have resolved. Patient also stated that she was run around the he with her grandson yesterday and thinks that she could have gotten or of heat exertion. Brain MRI was negative and said normal brain. Carotid Doppler showed less than 50% stenosis. Head CT showed no acute intracranial process. Echo showed 65-70% with grade 1 diastolic dysfunction. Patient is currently feeling okay she is asking for neb treatments as she does have some rhonchi however she stated that her norm. She also states that she uses nebulizer treatments and inhalers at home and has no issues with her breathing at this time. She denies any chest pain, shortness of breath, nausea, vomiting, diarrhea, constipation, weakness and fatigue. Neurology consulted and patient was started on an aspirin. Patient is c
[2022-03-28] MEDS: ANASTROZOLE (*CHEMO) 1 MG TABLET PO (10:42)
[2022-03-28] MEDS: ASPIRIN 81 MG CHEWABLE TABLET PO (10:42)
[2022-03-28] MEDS: ATORVASTATIN 20 MG TABLET PO (10:42)
[2022-03-28] MEDS: buPROPion HCL XL (24 HR) 150 MG TABCR PO (10:42)
[2022-03-28] MEDS: DULoxetine HCL 60 MG CAPSULE.DR PO (10:42)
[2022-03-28] MEDS: predniSONE 5 MG TABLET PO (10:42)
[2022-03-28] MEDS: ENOXAPARIN 40 MG/0.4 ML SYRINGE SUB-Q (10:43)
[2022-03-28] MEDS: ALBUTEROL SULFATE NEB 2.5 MG/3 ML INH 5 MG INHALATION (10:50)
--- NOTE | 2022-03-28 12:41 | WPDNEURCNPN ---
Assessment and Plan Assessment and plan (1) TIA (transient ischemic attack): Code(s): G45.9 - Transient cerebral ischemic attack, unspecified Status: Acute Plan 1. TIA 2. All the comorbid condition as discussed above 3. Normal neurological status at this particular time 3 discharge on aspirin and Plavix for the next 3 weeks and follow up in the office Consult date: 03/28/22 Time Seen: 10:00 Reason for consult: change in the mental status HPI: Kenzie Camara is a 61 year old female admitted to the hospital for the complaints of change in the mental status, With ongoing history of 1. COPD 2. GERD for 3 carcinoma of the breast and 4. Depression. Patient reportedly came to the emergency room for the complaints of increasing confusion in association with slurred speech she had driven herself to the sim[place] she was noted to be confused at [facility] by a friend who had spoken to her about 2 days ago when she was normally acting at the time of initial evaluation by the EMS such as speech was slurred and she arrived to the emergency room as a code stroke when seen by the physician earlier she was found to be awake alert to person place and time but was intermittently confused she knew that she was at the hospital she was able to give the exact year and the name of the president was not complaining of any pain and she reported that she had been drinking alcohol today there was no any signs of urine lateral weakness or numbness. she has been taking multiple medications which included alprazolam 0.25 mg b.i.d., Wellbutrin XR 300 mg daily, Seroquel 200 mg at night, duloxetine 60 mg daily, 80 pupils old 5 mg daily, and prednisone 10 mg in a Dosepak. She is known to be allergic to sulfa and in the past she has been taking chemotherapy which has resulted in adverse effects he has ongoing history of history of hypercholesterolemia and posttraumatic stress disorder in addition to rheumatoid arthritis , she has years smoked 40 currently every day smoker and also currently alcohol intake or socially her initial examination revealed her to have normal vital signs normal physical examination, evaluation included a normal CBC and CMP, CT scan of the head was negative for the bleed or any major arterial stroke, chest x-ray was with right upper lobe mass versus costochondral junction for which CT scan was suggested and subsequent CT scan of the chest documented 6x8mm right upper lobe pulmonary nodule and her EKG was normal, subsequently on the floor her Doppler study of the carotid is normal, brain MRI is normal Review of Systems Review of Systems: All systems reviewed & are unremarkable except as noted in HPI and below PMFSH Past Medical History Medical History Adverse effect of chemotherapy Asthma Colon cancer screening COPD (chronic obstructive pulmonary disease) Depression Family history of esophageal cancer Heart disease High cholesterol Otitis media of both ears PTSD (post-traumatic stress disorder) Rheumatoid arthritis Surgical History Surgical History H/O cardiac radiofrequency ablation Family History Family History (Updated 03/28/22 @ 05:04 by Dee Ram RN) Mother Renal cell carcinoma Father Family history of cardiovascular disease Other Asthma Cerebrovascular accident Depression Diabetes mellitus Family history of arthritis Hypertension Social History Social History Smoking packs per day: 1 Smoking cigarettes per day: 20.0 Years smoked: 40 Smoking pack-years: 40.00 Smoking status: Current every day smoker Tobacco type: cigarettes Alcohol intake: current Drinks per week: 1 Alcohol use details: socially Substance use: never Substance use type: does not use Additional occupation/education comments: [employer] Gender identity (if
[2022-03-28] MEDS: PERFLUTREN LIPID MICROSPHERES 1.5 ML VIAL DILUTED TO 10 ML TOTAL VOLUME IV PUSH (14:54)
--- NOTE | 2022-03-28 14:55 | IVDEFINITY ---
Prior to administration of IV Definity the patient was educated on the risks and benefits of the imaging enhancing agent including potential adverse side effects. The patient verbalized understanding. Allergies were verified. No exclusion criteria were identified and at least one of the following inclusion criteria were met: 1) physician request, 2) patient technically difficult to image (per the [place] [employer] guidelines of two or more segments not discernable within the apical view), or 3) questionable left ventricular function. ?
[2022-03-28] MEDS: CLOPIDOGREL BISULFATE 300 MG TABLET PO (15:42)
== END 2022-03-28 15:50 | disposition home or self-care (01) ==
LOC: ANHED 23:30 → ANH3MEDSUR 03-28 04:59
PROVIDERS: Admitting Provider Internal Medicine; Emergency Provider Emergency Medicine; PCP Internal Medicine; Visit Provider Nurse Practitioner
DX: G45.9 Transient cerebral ischemic attack, unspecified (principal); G93.41 Metabolic encephalopathy; J44.9 Chronic obstructive pulmonary disease, unspecified; K21.9 Gastro-esophageal reflux disease without esophagitis; Z85.3 Personal history of malignant neoplasm of breast; F32.A Depression, unspecified; F17.210 Nicotine dependence, cigarettes, uncomplicated; M06.061 Rheumatoid arthritis without rheumatoid factor, right knee; Z20.822 Contact with and (suspected) exposure to COVID-19
CPT/HCPCS: 36415; 70450; 70553; 71045; 71250; 80053; 80307; 82948; 84443; 84484; 85025; 85610; 85730; 87040; 93005; 93880; 94640; 96365; 96366; 96372; 96375; 99285; A9270; A9577; C8929; C9803; G0378; J0131; J1650; J7030; J7512; Q9957; U0003; U0005

== ENCOUNTER 2022-10-24 07:01 | Outpatient (CLI) | payer BC, SELFPAY ==
--- NOTE | ~2022-10-24 | CT_ITS ---
EXAMINATION:CT diagnostic chest w con DATE: 10/24/2022 07:31 INDICATION: Right lung nodule. TECHNIQUE: Computed tomography (CT) of the chest was performed with 75 mL Omnipaque 350 intravenous c ontrast. Automated exposure control and iterative reconstruction technique were employed. The dose-le ngth product (DLP) was 222.67 mGy-cm. COMPARISON: Chest CT 03/27/2022, 08/13/2020 FINDINGS: There is mild emphysema. There is a 12 mm nodule in right upper lobe, increased from 8 mm o n 03/27/2022. Calcified left lung nodules are consistent with old granulomatous disease. There is mild radiation fibrosis in anterior right lung. No pleural effusion. The heart size is normal. No pericar dial effusion. There is a chronic 1.8 cm mass in left adrenal gland measuring soft tissue attenuation , likely an adenoma. There is mild thoracic spondylosis. IMPRESSION: 1. Worsened nodule in right lung upper lobe suspicious for primary bronchogenic carcinoma. CT-guided biopsy is recommended. Reviewed, dictated and finalized at location A. IAL EDUCATION SUPERINTENDENT
[2022-10-24 07:26] LABS: Estimated Glomerular Filt Rate 42
== END 2022-10-24 07:02 | disposition home or self-care (01) ==
LOC: ANHIMG 07:06
PROVIDERS: PCP Physician Assistant Medical; Visit Provider Physician Assistant Medical
DX: R91.1 Solitary pulmonary nodule (principal)
CPT/HCPCS: 71260; Q9967

== ENCOUNTER 2022-11-03 09:06 | Outpatient (CLI) | payer BC, SELFPAY ==
[2022-10-27 15:46] VITALS: BMI 28.7
--- NOTE | 2022-10-27 15:53 | PC.NURSE ---
Pre Radiology instructions Report to the outpatient [facility] AT 0900 on date 11/03/22. Procedure Time: 1100. YOU MAY BE MONITORED AT HOSPITAL FOR UP TO 4 HOURS AFTER YOUR PROCEDURE. A visitor will be allowed to accompany the patient into the hospital. ?The visitor will be instructed to remain with patient at all times or may be askedto leave the building due to restrictions.? We will allow the visitor to come back to the postoperative area when patient is ready.? NO children visitors allowed at this time. You and your visitor will be asked to self-screen and do not enter if you have any COVID symptoms. A mask is OPTIONAL within the hospital. Patients are to have no food or drink 8 hours prior to procedure time Driving will be restricted after the procedure, you must have a person to drive you home. Labs will be drawn in preop area and once reviewed, you will be taken to radiology area for procedure. When the procedure is completed, you will be taken to outpatient where you will be monitored for several hours. You may have one visitor in this area. Other than holding anti-coagulants, patient may take other medication(s) as scheduled. Prior to your appointment date patients are instructed to hold anti-coagulants after discussing with ordering provider to stop. If unable to discontinue anti-coagulants please notify radiologist. ? No aspirin or warfarin (Coumadin) for 7 days prior to the procedure. ? No clopidogrel (Plavix), ticagrelor (Brilinta), prasugrel (Effient) or dabigatran (Pradaxa) for 5 days prior to the procedure. ? No rivaroxaban (Xarelto), apixaban (Eliquis), dipyridamole (Aggrenox or Persantine) or cilostazol (Pletal) for 2 days prior to the procedure. Medications to discontinue per physician: ASPIRIN, PLAVIX Date to take last dose: 10/27/22 (PER PT) Please leave all valuables, including medications, at home the day of procedure. The hospital will not accept responsibility for valuables. Wear comfortable, loose fitting clothing.? Follow any additional instructions given to you from ordering provider. Telephone instructions given to PT - BRICE BENAVIDEZ and asked if any additional questions and then verbalized understanding. Patient advised to call scheduling provider office or registration scheduling [phone] if any additional questions.
[2022-11-03] VITALS (8 sets, daily range): BP systolic 121–143; BP diastolic 71–89; PULSE 93–104; RESP 16–18; TEMP 36; O2SAT 93–98
--- NOTE | ~2022-11-03 | CT_ITS ---
EXAMINATION: CT biopsy lung w/imaging DATE: 11/03/2022 11:42 INDICATION: Right lung upper lobe nodule. TECHNIQUE: The procedure including the risks, benefits, and alternatives and possibility of chest tub e placement were discussed with the patient. Risks discussed included infection, symptomatic hemorrha ge, approximately 1/3 risk of pneumothorax, approximately 1/10 risk of pneumothorax severe enough to warrant chest tube placement, and rarely . The patient understood the risks and agreed to procee d. The patient was placed prone. The skin overlying the right lung was prepped and draped in sterile fashion. Anesthetic was administered with 1% lidocaine subcutaneously. A 19 gauge outer needle was advanced under CT guidance to the lesion of interest. A 20 gauge core biopsy needle was then used to obtain 1 core biopsy specimens. A small asymptomatic pneumothorax developed, and the procedure was t erminated. The needle was removed and the entry site was cleaned and dressed. The mA was adjusted acc ording to patient size. Iterative reconstruction technique was employed. The dose-length product was 181.18 mGy-cm. FINDINGS: CT images demonstrate the outer needle tip in a 12 mm nodule in right lung upper lobe. IMPRESSION: 1. CT-guided core needle biopsy of a 12 mm nodule in right lung upper lobe yielding only small fragm ents of tissue before the procedure was terminated. 2. Small right pneumothorax. If this specimen is nondiagnostic and the pneumothorax does not require treatment, repeat biopsy is recommended in one week. Reviewed, dictated and finalized at location A. D PUMP OPERATOR IMPRESSION: 1. CT-guided core needle biopsy of a 12 mm nodule in right lung upper lobe yie lding only small fragments of tissue before the procedure was terminated. 2. Small right pneumothorax. If this specimen is nondiagnostic and the pneumoth orax does not require treatment, repeat biopsy is recommended in one week.
--- NOTE | ~2022-11-03 | XR_ITS ---
EXAMINATION: XR chest 1V portable DATE: 11/03/2022 11:43 INDICATION: Worsening shortness of breath and chest pain status post lung biopsy. TECHNIQUE: A single frontal view of the chest was obtained. COMPARISON: Chest single view at 11:22 AM FINDINGS: There is a nodule in right lung upper lobe. There is a small right pneumothorax. No pleural effusion. The heart size is normal. IMPRESSION: 1. Small right pneumothorax with slight worsening. The patient reports 4/10 chest pain. We will eileen nue to monitor and performed follow-up chest radiographs. 2. Right lung upper lobe nodule suspicious for primary bronchogenic carcinoma. Reviewed, dictated and finalized at location A. ENT RESOURCE COORDINATOR IMPRESSION: 1. Small right pneumothorax with slight worsening. The patient reports 4/[address] pain. We will continue to monitor and performed follow-up chest radiographs. 2. Right lung upper lobe nodule suspicious for primary bronchogenic carcinoma.
--- NOTE | ~2022-11-03 | XR_ITS ---
EXAMINATION: XR chest 1V DATE: 11/03/2022 11:25 INDICATION: Right lung nodule status post percutaneous biopsy. TECHNIQUE: A single frontal view of the chest was obtained. COMPARISON: Chest single view 03/27/2022 FINDINGS: There is a nodule in right lung upper lobe. There is a small right pneumothorax. No pleural effusion. The heart size is normal. IMPRESSION: 1. Small right pneumothorax status post percutaneous lung biopsy. 2. Right lung nodule suspicious for primary bronchogenic carcinoma. Reviewed, dictated and finalized at location A. ICE CLERK
--- NOTE | ~2022-11-03 | XR_ITS ---
EXAMINATION: XR chest 1V portable DATE: 11/03/2022 14:22 INDICATION: Right lung nodule status post percutaneous biopsy. TECHNIQUE: A single frontal view of the chest was obtained. COMPARISON: Chest single view at 12:44 PM FINDINGS: There is a small right pneumothorax. No pneumonia or pleural effusion. The heart size is no rmal. IMPRESSION: 1. Stable small right pneumothorax. I discussed with the patient that she should return for a repeat lung biopsy in one week if the biopsy is nondiagnostic. Reviewed, dictated and finalized at location A. CISE SCIENCE INTERNSHIP IMPRESSION: 1. Stable small right pneumothorax. I discussed with the patient that she shoul d return for a repeat lung biopsy in one week if the biopsy is nondiagnostic.
--- NOTE | ~2022-11-03 | XR_ITS ---
Portable chest x-ray Comparison: 11/03/2022 at 11:40 AM Clinical History: Pneumothorax, postbiopsy Findings: Right pneumothorax is stable from prior exam. Left lung is clear. Cardiomediastinal silho uette is stable. Bones and soft tissues are unremarkable. Impression: Stable right pneumothorax. Known pulmonary nodule is not well seen radiographically. Please refer to prior CT examinations. Reviewed, dictated and finalized at location M. ORATE GENERAL MANAGER Impression: Stable right pneumothorax. Known pulmonary nodule is not well seen radiographically. Please refer to prior CT examinations.
[2022-11-03 09:41] LABS: Mean Platelet Volume 8.8 fl (7.4-10.4); Platelet Count Result 375 k/mm3 (150-375)
[2022-11-03 09:58] LABS: Prothrombin Time 13.1 Seconds (11.1-14.7)
--- NOTE | 2022-11-03 11:38 | SUR.PHASEII ---
1131 DR. HUANG CALLED TO REPORT PATIENT'S INCREASED RIGHT UPPER CHEST, RIGHT NECK AND RIGHT UPPER BACK PAIN 5/10, CHEST WORSE THAN BACK; REPORTS SLIGHT SOB. DR. HUANG ORDERED PORTABLE CXR.
--- NOTE | 2022-11-03 11:39 | SUR.PHASEII ---
PORTABLE CXR IN PROGRESS. PATIENT REPORTS LESSENING PAIN AND THAT SHE THINKS IT WAS ANXIETY. DR HUANG HERE TO SEE PT.
--- NOTE | 2022-11-03 12:07 | SUR.PHASEII ---
DR. HUANG HERE TO SEE PT.
--- NOTE | 2022-11-03 14:20 | SUR.PHASEII ---
PORTABLE CXR DONE.
== END 2022-11-03 09:07 | disposition home or self-care (01) ==
PROVIDERS: PCP Physician Assistant Medical; Visit Provider Radiology Diagnostic Radiology
PROC: BB24ZZZ Computerized Tomography (CT Scan) of Bilateral Lungs (ICD-10-PCS; CPT 32408; principal; 2022-11-03 11:00)
DX: R91.1 Solitary pulmonary nodule (principal); J93.9 Pneumothorax, unspecified
CPT/HCPCS: 32408; 36415; 71045; 85049; 85610; 88305

== ENCOUNTER 2022-11-18 01:51 | Outpatient (CLI) | payer BC, SELFPAY ==
[2022-11-17 08:45] VITALS: BMI 28.7
--- NOTE | 2022-11-17 08:45 | PC.NURSE ---
Pre Radiology instructions Report to the LAB ENTRANCE AT 1030 on date 11/18/22. Procedure Time: 1100. YOU MAY BE MONITORED AT HOSPITAL FOR UP TO 4 HOURS AFTER YOUR PROCEDURE. A visitors will be allowed to accompany the patient into the hospital. ?The visitor will be instructed to remain with patient at all times or leave the building due to restrictions.? We will allow the visitor to come back to the postoperative area when patient is ready.? NO children visitors allowed at this time. You and your visitor will be asked to self-screen and do not enter if you have any COVID symptoms. A mask is OPTIONAL within the hospital. Patients are to have no food or drink 6 hours prior to procedure time Driving will be restricted after the procedure, you must have a person to drive you home. Labs will be drawn in preop area and once reviewed, you will be taken to radiology area for procedure. When the procedure is completed, you will be taken to outpatient where you will be monitored for several hours. You may have one visitor in this area. Other than holding anti-coagulants, patient may take other medication(s) as scheduled. Prior to your appointment date patients are instructed to hold anti-coagulants after discussing with ordering provider to stop. If unable to discontinue anti-coagulants please notify radiologist. ? No aspirin or warfarin (Coumadin) for 7 days prior to the procedure. ? No clopidogrel (Plavix), ticagrelor (Brilinta), prasugrel (Effient) or dabigatran (Pradaxa) for 5 days prior to the procedure. ? No rivaroxaban (Xarelto), apixaban (Eliquis), dipyridamole (Aggrenox or Persantine) or cilostazol (Pletal) for 2 days prior to the procedure. Medications to discontinue per physician: ASPIRIN, PLAVIX Date to take last dose: 5 DAYS PRIOR TO PROCEDURE Please leave all valuables, including medications, at home the day of procedure. The hospital will not accept responsibility for valuables. Wear comfortable, loose fitting clothing.? Follow any additional instructions given to you from ordering provider. Telephone instructions given to PT - BRICE BENAVIDEZ and asked if any additional questions and then verbalized understanding. Patient advised to call scheduling provider office or registration scheduling [phone] if any additional questions.
[2022-11-18] VITALS (8 sets, daily range): BP systolic 108–144; BP diastolic 67–91; PULSE 73–101; RESP 16–18; O2SAT 96–100
--- NOTE | ~2022-11-18 | XR_ITS ---
EXAMINATION: XR chest 1V DATE: 11/18/2022 11:31 INDICATION: Right lung nodule status post percutaneous biopsy. TECHNIQUE: A single frontal view of the chest was obtained. COMPARISON: Chest single view 11/03/2022 FINDINGS: There is a nodule in right upper lobe. No pleural effusion or pneumothorax. The heart size is normal. IMPRESSION: 1. Nodule in right upper lobe suspicious for malignancy. Reviewed, dictated and finalized at location A. AL TECHNICIAN
--- NOTE | ~2022-11-18 | CT_ITS ---
EXAMINATION: CT biopsy lung w/imaging DATE: 11/18/2022 11:33 INDICATION: Right lung upper lobe nodule. TECHNIQUE: The procedure including the risks, benefits, and alternatives and possibility of chest tub e placement were discussed with the patient. Risks discussed included infection, hemorrhage, approxim ately 1/3 risk of pneumothorax, approximately 1/10 risk of pneumothorax severe enough to warrant ches t tube placement, and rarely . The patient understood the risks and agreed to proceed. The patie nt was placed prone. The skin overlying the right chest was prepped and draped in sterile fashion. Anesthetic was administered with 1% lidocaine subcutaneously. A 19 gauge outer needle was advanced u nder CT guidance to the lesion of interest. A 20 gauge core biopsy needle was then used to obtain 3 c ore biopsy specimens. The needle was removed and the entry site was cleaned and dressed. The mA was a djusted according to patient size. Iterative reconstruction technique was employed. The dose-length p roduct was 137.06 mGy-cm. There were no immediate complications. FINDINGS: CT images demonstrate the outer needle tip in a 12 mm nodule in right lung upper lobe. IMPRESSION: 1. CT-guided core needle biopsy of a nodule in right lung upper lobe. Reviewed, dictated and finalized at location A. KERTRON CHECKER
--- NOTE | ~2022-11-18 | XR_ITS ---
EXAMINATION: XR chest 1V portable DATE: 11/18/2022 14:37 INDICATION: Right lung nodule status post percutaneous biopsy. TECHNIQUE: A single frontal view of the chest was obtained. COMPARISON: Chest single view at 12:41 PM FINDINGS: There is a nodule in right lung upper lobe. No pleural effusion or pneumothorax. The heart size is normal. IMPRESSION: 1. Nodule in right lung upper lobe suspicious for malignancy. Reviewed, dictated and finalized at location A. INGS INSPECTOR
--- NOTE | ~2022-11-18 | XR_ITS ---
EXAMINATION: XR chest 1V portable DATE: 11/18/2022 12:49 INDICATION: Right lung nodule status post percutaneous biopsy. TECHNIQUE: A single frontal view of the chest was obtained on 2 radiographs. COMPARISON: Chest single view at 11:24 AM FINDINGS: There is a nodule in right lung upper lobe. No pleural effusion or pneumothorax. The heart size is normal. IMPRESSION: 1. Nodule in right lung upper lobe suspicious for malignancy. Reviewed, dictated and finalized at location L. OUS WEEDS AND PEST INSPECTOR
== END 2022-11-18 14:50 | disposition home or self-care (01) ==
PROVIDERS: Radiology Diagnostic Radiology; PCP Physician Assistant Medical; Visit Provider Physician Assistant Medical
PROC: BB24ZZZ Computerized Tomography (CT Scan) of Bilateral Lungs (ICD-10-PCS; CPT 32408; principal; 2022-11-18 11:00)
DX: R91.1 Solitary pulmonary nodule (principal); R91.8 Other nonspecific abnormal finding of lung field
CPT/HCPCS: 32408; 71045; 88305

== ENCOUNTER 2022-12-02 13:22 | Outpatient (CLI) | payer BC, SELFPAY ==
--- NOTE | ~2022-12-02 | PE_ITS ---
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 10.288 mCi of 18-fluorodeoxyglucose (18-FDG) was admini stered i.v. Low dose computed tomography (CT) images were acquired from the base of the brain to the proximal thighs for attenuation correction and anatomic localization. Positron emission tomography (P ET) images were acquired in the same distribution beginning minutes after injection. Images including fused PET/CT images were reconstructed in axial, coronal, and sagittal planes. Automated exposure co ntrol technique was employed. The dose-length product was 605.76mGy-cm. COMPARISON: CT dated 10/24/2022 FINDINGS: Head/neck: There is symmetric increased activity in the oral cavity, submandibular glands and ocular muscles wit hout CT correlate, likely physiologic. There is asymmetric tiny focus of increased uptake with tejas l SUV of 10.4 associated with a subtle approximately 6 mm nodular soft tissue density in the posterio r left parotid gland. No pathologically enlarged cervical lymphadenopathy or other suspicious foci of increased FDG uptake in the visualized head or neck. Chest: Mild FDG uptake with maximal SUV of 2.9 associated with the biopsied 1.2 cm nodule at the posterior s egment of the right upper lobe. Small calcified nodules in the lingula consistent with old granulomat ous disease. No other suspicious pulmonary nodules, pneumonia, pulmonary edema or pleural effusion. H eart size is normal. No pericardial effusion. Thoracic aorta is normal in caliber. No pathologically enlarged thoracic lymphadenopathy. Small sliding-type hiatal hernia. There is diffuse mild increased uptake without radiologic correlate along the mid to distal esophagus with maximal SUV of 12 most lik mei related to reflux esophagitis. There is prominent increased FDG uptake with maximal SUV of 13.9 a ssociated with a small region of focal skin thickening at the posterior right hemithorax positioned a long the medial margin of the scapula at the level of the fifth rib. On the CT dated 10/24/2022 there is more clearly defined 11 x 7 mm subdermal nodule at this location. No pathologically enlarged or FD G avid thoracic lymphadenopathy. Abdomen/pelvis/proximal thighs: Physiologic renal accumulation and excretion of FDG activity in the kidneys, bladder and along portio ns of ureters. Normal degree and heterogenous pattern of increased uptake throughout the liver withou t radiologic correlate or dominant FDG avid lesion. The gallbladder, pancreas, spleen and bilateral a drenal glands are normal. Mild uptake scattered throughout the bowels without radiologic correlate, a lso likely physiologic. Normal appendix. Uterus and bilateral adnexa are unremarkable. No other abnor mal foci of increased FDG uptake or pathologically enlarged lymphadenopathy in the abdomen, pelvis or proximal thighs. Musculoskeletal: Relatively symmetric uptake overlying the bilateral greater trochanters without radiologic correlate consistent with trochanteric bursitis. No suspicious lytic, blastic or FDG avid bone lesions. IMPRESSION: 1. 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 No lesion suspicious for metastatic disease. 2. Indeterminate prominent FDG avid subdermal nodule at the posterior right hemithorax which could be either infectious, inflammatory or malignant in etiology. Correlate with physical exam and could con insolvency practitioner biopsy either by direct visualization if apparent or with ultrasound guidance. 3. Small focus of prominent increased FDG uptake such with a poorly defined 5 mm left parotid nodule which can be seen with parotid neoplasm either benign or malignant. Could consider ultrasound-guided fine-needle aspiration. 4. Small hi
[2022-12-02 13:50] LABS: Glucose Point of Care 115 mg/dl (65-105)
== END 2022-12-02 13:23 | disposition home or self-care (01) ==
PROVIDERS: PCP Physician Assistant Medical; Visit Provider Internal Medicine Hematology & Oncology
DX: C34.11 Malignant neoplasm of upper lobe, right bronchus or lung (principal); R91.1 Solitary pulmonary nodule; K44.9 Diaphragmatic hernia without obstruction or gangrene
CPT/HCPCS: 78815; A9552

== ENCOUNTER 2022-12-04 13:18 | Outpatient (CLI) | payer BC, SELFPAY ==
--- NOTE | 2022-12-05 11:14 | WPDPFTINT ---
PFT Procedure Performed PFT Procedure Performed Plethysmography (Lung Vol) Diffusing Cap (DLCO) Flow Vol Loop Spirometry w/o Bronchodil PFT Interpretation DOS: 12/04/2022 REQUESTING: Dr Yang REASON FOR TESTING: Lung cancer PULMONARY FUNCTION TESTS Results are reliable and reproducible. Spirometry: FEV1 is 2.19, 75%, mildly reduced. FVC 3.24 L, 86%, normal. FEV1/FVC ratio is 68%, lower limit of normal. No bronchodilator was given. Lung volumes: Total lung capacity 7.21 L, 121%, mild hyperinflation. Residual volume is 3.43 L, 146%, increased, consistent with moderate hyperinflation. RV/TLC is 48%, upper limit of normal. Airway resistance 3.15 cmH20/L/sec, 265%, increased. Diffusion: DLCO 16.5, 70%, mildly decreased. DLCO/VA is 3.07, 74%, partially corrected for alveolar volume. Flow volume loop: There is mild coving of the expiratory limb IMPRESSION: There is a mild obstructive ventilatory impairment with moderate air trapping and mild diffusion impairment. This is consistent with emphysema. Johana Méndez MD
== END 2022-12-04 13:19 | disposition home or self-care (01) ==
LOC: ANHPFT 13:20
PROVIDERS: PCP Physician Assistant Medical; Visit Provider Internal Medicine Hematology & Oncology
DX: C34.11 Malignant neoplasm of upper lobe, right bronchus or lung (principal); R94.2 Abnormal results of pulmonary function studies
CPT/HCPCS: 94375; 94726; 94729

== ENCOUNTER 2023-01-14 23:04 | Inpatient (IN) | payer BC, SELFPAY ==
--- NOTE | ~2023-01-14 | XR_ITS ---
EXAMINATION: XR chest 1V portable INDICATION: Shortness of breath TECHNIQUE: Portable AP chest at 0118 hours COMPARISON: PE protocol of the same date; chest radiograph, 11/18/2022 FINDINGS: There is a tiny right apical pneumothorax as seen on the comparison CT. There is elevation of the right hemidiaphragm, likely related to history of right upper lobectomy. A small right pleural effusion is present. The cardiomediastinal silhouette is normal. The left lung is clear. IMPRESSION: 1. Tiny persistent left apical pneumothorax. 2. Small right pleural effusion. 3. Elevation of the right hemidiaphragm, consistent with right upper lobectomy. Reviewed, dictated and finalized at location L.
--- NOTE | ~2023-01-14 | CT_ITS ---
EXAMINATION: CTA chest PE protocol DATE: 01/15/2023 01:30 INDICATION: Shortness of breath, history of right upper lobectomy TECHNIQUE: Computed tomography angiography (CTA) of the chest was performed with 100 mL Omnipaque-350 intravenous contrast timed to evaluate the pulmonary arteries. Coronal maximum intensity projection 3D-reconstructions were created by the technologist. The dose-length product (DLP) was 430.35 mGy-cm. Automated exposure control and iterative reconstruction technique were employed. COMPARISON: 10/24/2022 FINDINGS: The pulmonary arteries are well-opacified. No pulmonary embolism is identified. There are c hanges of interval right upper lobectomy. There is a small, loculated right pleural effusion. A tiny right apical pneumothorax is noted. There is mild atelectasis of the lungs. The heart size is normal. No pathologically enlarged thoracic lymph nodes are identified. Soft tissue density at the right hil um likely reflects postsurgical change. There is a chronic 1.8 cm mass of the left adrenal gland, lik mei an adenoma. There is mild thoracic spondylosis. IMPRESSION: 1. No pulmonary embolus identified. 2. Small right pneumothorax. 3. Changes of interval right upper lobectomy with small loculated right pleural effusion. Reviewed, dictated and finalized at location L.
[2023-01-14 23:07] VITALS: BP 129/82; PULSE 109; RESP 28; TEMP 36.4; O2SAT 100
--- NOTE | 2023-01-14 23:32 | ECG_ITS ---
Measurements Intervals [place] Rate: 105 P: 84 WA: 128 QRS: -7 QRSD: 82 T: 65 QT: 270 QTc: 358 Interpretive Statements SINUS TACHYCARDIA POSSIBLE RIGHT VENTRICULAR CONDUCTION DELAY [RSR (QR) IN V1/V2] NONSPECIFIC ST & T-WAVE ABNORMALITY ABNORMAL RHYTHM ECG COMPARED TO ECG 03/12/2020 14:35:08 NO SIGNIFICANT CHANGES Electronically Signed On 01-15-2023 10:41:33 CDT by Aide Tenorio M.D.
[2023-01-14 23:49] VITALS: O2SAT 100
[2023-01-14 23:51] LABS: Basophils Absolute Auto 0.1 K/mm3 (0.0-0.1); Basophils Percent Auto 0.4 % (0.2-1.2); Eosinophils Absolute Auto 0.4 K/mm3 (0-0.3); Eosinophils Percent Auto 3.3 % (0-4.4); Hematocrit 42.8 % (37.0-47.0); Hemoglobin 13.6 g/dL (12.0-15.0); Immature Granulocyte Absolute 0.13 K/mm3 (0.00-0.031); Lymphocytes Absolute Auto 1.02 K/mm3 (0.9-3.2); Lymphocytes Percent Auto 8.1 % (18.3-44.2); Mean Corpuscular HGB Conc 31.8 g/dl (32-36); Mean Corpuscular Hemoglobin 29.3 pg (26-34); Mean Corpuscular Volume 92.2 fl (80-100); Mean Platelet Volume 9.5 fl (7.4-10.4); Monocytes Absolute Auto 0.7 K/mm3 (0.1-0.6); Monocytes Percent Auto 5.3 % (2.6-8.5); Neutrophils Absolute Auto 10.3 K/mm3 (1.3-6.7); Neutrophils Percent Auto 81.9 % (45.5-73.1); Platelet Count Result 386 k/mm3 (150-375); Red Blood Count 4.64 M/mm3 (4.2-5.4); Red Cell Distribution Width 14.6 % (11.5-14.5); White Blood Count 12.5 K/mm3 (4.5-10.0)
[2023-01-14] MEDS: SODIUM CHLORIDE 0.9% IV 1,000 ML 999 ML IV CONT (23:55)
[2023-01-15] VITALS (17 sets, daily range): BP systolic 134–155; BP diastolic 66–83; PULSE 82–96; RESP 16–20; TEMP 36.6–36.8; O2SAT 93–99; BMI 28.6
[2023-01-15 00:02] LABS: INR 1.1; Partial Thromboplastin Time 20.5 SECONDS (22.3-36.8); Prothrombin Time 13.3 Seconds (11.1-14.7)
[2023-01-15] MEDS: ALBUTEROL SULFATE NEB 2.5 MG/3 ML INH 5 MG INHALATION (00:14)
[2023-01-15] MEDS: IPRATROPIUM BR 0.02% INH SOLN 0.5 MG/2.5 ML VIAL 1 MG INHALATION (00:14)
[2023-01-15 00:16] LABS: Alanine Aminotransferase 22 U/L (6-35); Albumin Level 3.8 g/dL (3.5-5.1); Alkaline Phosphatase 93 U/L (38-126); Anion Gap 5 mmol/L (8-16); Aspartate Amino Transferase 29 U/L (14-36); Bilirubin,Total 0.5 mg/dL (0.2-1.3); Blood Urea Nitrogen 15 mg/dL (7-17); Calcium 8.8 mg/dL (8.4-10.2); Carbon Dioxide 32 mmol/L (22-30); Chloride 101 mmol/L (98-107); Creatine Kinase 29 U/L (30-135); Estimated CRCL calculation 102 ml/min; Estimated Glomerular Filt Rate > 60; Glucose 129 mg/dL (65-110); Magnesium 2.1 mg/dL (1.6-2.3); Potassium 4.2 mmol/L (3.4-5.0); Sodium 138 mmol/L (137-145)
[2023-01-15 00:17] LABS: Lactic Acid Reflex 1.1 mmol/L (0.7-2.0)
[2023-01-15 00:27] LABS: Influenza A QL RT-PCR Negative (Negative); Influenza B QL RT-PCR Negative (Negative); RSV RNA, RT-PCR Negative (Negative); SARS-CoV-2 RNA PCR Negative; Troponin I < 0.012 ng/mL (0.000-0.034)
[2023-01-15 00:28] LABS: Base Excess ABG 4.1 mEq/l (+/-2.0); Fractional Inspired Oxygen 24 %; Oxygen Content ABG 18.6 %vol (16.0-22.0); Oxygen Saturation ABG 99.5 % (95.0-100.0); Oxyhemoglobin 95.7 % THb (90.0-100.0); PCO2 ABG 56.6 mmHg (35.0-45.0); PO2 ABG 230.9 mmHg (80.0-100.0); Total Hemoglobin 13.4 g/dL (12.0-18.0); pH ABG 7.357 (7.350-7.450)
[2023-01-15 00:29] LABS: Device NASAL CANNULA; Site Drawn RIGHT BRACHIAL
[2023-01-15 00:51] LABS: NT Pro B Type Natriuretic Pept 295 pg/mL (19.9-100)
--- NOTE | 2023-01-15 02:20 | ED.GENADULT ---
HPI - General Adult General Chief complaint: Shortness of Breath/Dyspnea Stated complaint: SHORTNESS OF BREATH History of Present Illness HPI narrative: This is a 62-year-old female presenting to ED with a chief complaint of shortness of breath. The patient had a thoracotomy and lobectomy for lung cancer on 327. Since then she has been feeling more short of breath with wheezing. she has also had a productive cough. Patient denies fever, chills, chest pain abdominal pain urinary symptoms or lower extremity edema. Patient had the surgery performed at [facility] although she said swears to me she will never go back there for how they treated her. The patient's oncologist is Dr. Yang. Related Data Home Medications Medication Instructions Recorded Confirmed bupropion HCl 300 mg 24 hr tablet, 150 mg PO BID 11/14/19 11/17/22 extended release quetiapine 200 mg tablet 200 mg PO HS 11/14/19 11/17/22 anastrozole 1 mg tablet 1 mg PO DAILY 02/07/20 11/17/22 ipratropium 0.5 mg-albuterol 3 mg 3 ml inhalation QID PRN Allergy 02/07/20 11/17/22 (2.5 mg base)/3 mL nebulization Symptoms soln duloxetine 60 mg capsule,delayed 60 mg PO DAILY 08/29/20 11/17/22 release Allergies Allergy/AdvReac Type Severity Reaction Status Date / Time Sulfa (Sulfonamide Allergy Mild Rash Verified 11/17/22 08:44 Antibiotics) PMFSH Past Medical History Medical History Adverse effect of chemotherapy Anxiety Asthma Colon cancer screening COPD (chronic obstructive pulmonary disease) Depression Family history of esophageal cancer Heart disease High cholesterol Lung cancer 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 Osteoarthritis Otitis media of both ears (~09/03/22) PTSD (post-traumatic stress disorder) Rheumatoid arthritis Surgical History Surgical History H/O cardiac radiofrequency ablation Family History Family History Mother Renal cell carcinoma Father Family history of cardiovascular disease Other Asthma Cerebrovascular accident Depression Diabetes mellitus Family history of arthritis Hypertension Social History Social History Smoking packs per day: 1 Smoking cigarettes per day: 20.0 Years smoked: 40 Smoking pack-years: 40.00 Smoking status: Current every day smoker Tobacco type: cigarettes Alcohol intake: current Drinks per week: 1 Alcohol use details: 3/MONTH Substance use: never Substance use type: does not use Lack of Transportation: No Lack of Food: Never True Current Housing: I Have Housing Concerned About Future Housing: No Difficulty Paying Gas/Electric Bills: No Difficulty Paying for Meds: No Currently Unemployed: No Education: High School Diploma/GED Difficulty w/ Childcare or Family Care: No Living arrangements: with family Occupation/Education: occupation Additional occupation/education comments: [employer] Gender identity (if verbalized by the patient): Female Sexual Orientation (if Verbalized by the Patient): Straight or Heterosexual Spiritual care concerns: No Exam Narrative: APPEARANCE: patient appears uncomfortable Head: atraumatic. EYES: EOMI, NOSE: Atraumatic NECK: Trachea midline RESPIRATORY: Scattered wheezing bilaterally CARDIOVASCULAR: tachycardic, no peripheral edema ABDOMINAL: Non-distended , soft no guarding or rebound MUSCULOSKELETAl: well-healed thoracotomy scar, no surrounding erythema or induration. NEURO: Alert. Moving 4/4 extremities SKIN:: Warm, dry. Normal color PSYCHIATRIC: Normal affect Course Vital Signs Vital signs: Vital Signs Temperature 97.5 F L 01/14/23 23:07 Pulse Rate 109 H 01/14/23 23:07 Respiratory Rate 28 H 01/14/23 23:07 Blood Pressure 129/82 01/14/23 23:07 Pulse Oxi
[2023-01-15] MEDS: methylPREDNISolone SOD SUCC 125 MG VIAL IV PUSH (02:29)
[2023-01-15] MEDS: MAGNESIUM SULF 2 GM/WATER 50ML 2 GM/50 ML BAG IVPB (02:30)
[2023-01-15 03:32] LABS: Troponin I < 0.012 ng/mL (0.000-0.034)
--- NOTE | 2023-01-15 03:59 | PM.IMHP ---
H&P: HPI History of Present Illness Date/Time: 01/15/23 03:59 Chief Complaint: Shortness of breath Narrative: This is a 62-year-old female with past medical history significant for COPD/emphysema, patient used to smoke 1 pack of cigarettes daily, status post right lung upper lobe lobectomy this was done at outside facility on January 05. Patient presents today to the emergency room with shortness of breath which is persistent worse at exertion, cough productive of thick yellow sputum, patient denies any fevers, rigors, chills, nausea, vomiting or diarrhea. Patient had been diagnosed with lung cancer. A CT PE protocol was reported as: FINDINGS: The pulmonary arteries are well-opacified. No pulmonary embolism is identified. There are changes of interval right upper lobectomy. There is a small, loculated right pleural effusion. A tiny right apical pneumothorax is noted. There is mild atelectasis of the lungs. The heart size is normal. No pathologically enlarged thoracic lymph nodes are identified. Soft tissue density at the right hilum likely reflects postsurgical change. There is a chronic 1.8 cm mass of the left adrenal gland, likely an adenoma. There is mild thoracic spondylosis. IMPRESSION: 1. No pulmonary embolus identified. 2. Small right pneumothorax. 3. Changes of interval right upper lobectomy with small loculated right pleural effusion. A chest x-ray was reported as: FINDINGS: There is a tiny right apical pneumothorax as seen on the comparison CT. There is elevation of the right hemidiaphragm, likely related to history of right upper lobectomy. A small right pleural effusion is present. The cardiomediastinal silhouette is normal. The left lung is clear. IMPRESSION: 1. Tiny persistent left apical pneumothorax. 2. Small right pleural effusion. 3. Elevation of the right hemidiaphragm, consistent with right upper lobectomy. Review of Systems Review of Systems: Shortness of breath, productive cough of thick yellow sputum Constitutional: Constitutional: Denies chills, Reports fatigue, Denies fever(s), Reports lethargy and Reports malaise Eyes: Eyes: Denies change in vision ENT: Denies dysphagia Cardiovascular: Cardiovascular: Denies chest pain, Denies leg edema, Denies lightheadedness and Denies palpitations Respiratory: Respiratory: Reports change in phlegm color, Reports cough, Reports excessive phlegm production, Reports dyspnea and Reports wheezing Gastrointestinal: Gastrointestinal: Denies abdominal pain, Denies dyspepsia, Denies heartburn, Denies diarrhea, Denies nausea and Denies vomiting Genitourinary: Genitourinary: Denies dysuria Musculoskeletal: Musculoskeletal: Denies myalgias and Denies muscle weakness Integumentary/Breasts: Skin/Breast: Denies rash Neurologic: Denies focal weakness and Denies Sensory deficit (Neuro) Psychiatric: Psychiatric: Reports no additional psychiatric complaints and Reports as per HPI Endocrine: Endocrine: Denies cold intolerance, Denies flushing, Denies heat intolerance, Denies polyphagia, Denies polydipsia and Denies palpitations Hematologic/Lymphatic: Hematologic/Lymphatic: Reports no additional hematologic/lymphatic complaints and Reports as per HPI Allergic/Immunologic: Allergic/Immunologic: Reports no additional allergic/immunologic complaints and Reports as per HPI PMFSH Past Medical History Medical History Adverse effect of chemotherapy Anxiety Asthma Colon cancer screening COPD (chronic obstructive pulmonary disease) Depression Family history of esophageal cancer Heart disease High cholesterol Lung cancer 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
[2023-01-15] MEDS: CEFEPIME 2 GM/NS 50 ML 2 GM/50 ML BAG IVPB ×2 (06:25→17:44)
[2023-01-15] MEDS: IPRATROPIUM BR 0.02% INH SOLN 0.5 MG/2.5 ML VIAL INHALATION ×3 (07:35→20:29)
[2023-01-15] MEDS: ALBUTEROL SULFATE NEB 2.5 MG/3 ML INH INHALATION ×3 (07:35→20:29)
[2023-01-15] MEDS: VENLAFAXINE HCL XR 75 MG CAP.ER.24H 150 MG PO (08:50)
[2023-01-15] MEDS: CLOPIDOGREL BISULFATE 75 MG TABLET PO (08:50)
[2023-01-15] MEDS: PANTOPRAZOLE 40 MG TABLET PO (08:51)
[2023-01-15] MEDS: ENOXAPARIN 40 MG/0.4 ML SYRINGE SUB-Q (08:51)
[2023-01-15] MEDS: ATORVASTATIN 20 MG TABLET PO (08:51)
[2023-01-15] MEDS: NICOTINE (*PBKC) 21 MG PATCH 1 PATCH TRANSDERM (08:51)
[2023-01-15] MEDS: predniSONE 2.5 MG TABLET PO (08:51)
[2023-01-15] MEDS: HYDROcodone/acetaminophen (*CRX) 5-325 MG TABLET 1 TAB PO ×3 (12:20→20:43)
--- NOTE | 2023-01-15 13:51 | PM.IMPN ---
Progress Note: A&P Assessment and Plan (1) Acute respiratory failure with hypoxia and hypercapnia: Code(s): J96.01 - Acute respiratory failure with hypoxia; J96.02 - Acute respiratory failure with hypercapnia Status: Acute Assessment and Plan: Patient is currently on supplemental oxygen by nasal cannula and reported desaturation with activity on room air. S/p right upper lobectomy 01/05 for lung cancer and recently discharged on Thursday, per patient. CXR with tiny left apical pneumothorax, small right pleural effusion and right hemidiaphragm elevated. CTA chest with small right pneumothorax, no PE and loculated right pleural effusion. Wheezing on exam. Treated for COPD exacerbation and empiric abx gven recent surgery and hospitalization. ABG on admission with pH 7.35, pCO2 56, pO2 230, HCO31 and serum TCO2 32 suggesting chronic hypercapnia secondary to COPD. Neuro status intact. Repeat ABG in am. (2) COPD exacerbation: Code(s): J44.1 - Chronic obstructive pulmonary disease with (acute) exacerbation Status: Acute Assessment and Plan: Continue duoneb treatments q.4 hours Increase prednisone to 40 mg PO daily. continue broad-spectrum antibiotics, especially given recent hospitalization and surgery. Continue IV Vancomycin, IV Cefepime and IV Azithromycin Blood cultures and MRSA nares pending. De-escalate antibiotics when appropriate. She will need LAMA +/- LABA therapy at discharge. (3) Lung cancer: Code(s): C34.90 - Malignant neoplasm of unspecified part of unspecified bronchus or lung Status: Chronic Assessment and Plan: Status post right lung upper lobe lobectomy Follow-up in outpatient setting with Dr. Yang. 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 (6) Chronic GERD: Code(s): K21.9 - Gastro-esophageal reflux disease without esophagitis Status: Chronic Assessment and Plan: Continue daily PPI (7) Rheumatoid arthritis involving both knees with negative rheumatoid factor: Code(s): M06.061 - Rheumatoid arthritis without rheumatoid factor, right knee; M06.062 - Rheumatoid arthritis without rheumatoid factor, left knee Status: Acute Assessment and Plan: She reports severe arthritis requiring steroid injections and chronic prednisone therapy. Continue Tylenol p.r.n. Prednisone increased 40 mg PO daily as above. PRN Godfrey Subjective Date/time seen: 01/15/23 13:51 She c/o sharp pain to her right chest incision that is radiating. It is worsened by coughing. She states her cough is nonproductive and has felt short of breath with activity since discharge following surgery on Thursday. She denies fever, chills or rigors. She has been taking Godfrey for pain since discharge and thinks it helps, although she has been without pain medication for several hours since admission. Additionally, she was prescribed gabapentin following surgery, but has not taken it due to concerns for medication side effects as well as side effect from epidural analgesics from lobectomy surgery. She states that she was discharged home without oxygen and has never had oxygen in the past. She recently had PFTs that showed mild obstruction and reports using nebulizer therapy as needed. Review of Systems Review of Systems: All systems reviewed & are unremarkable except as noted in HPI and below Exam Narrative:
[2023-01-15] MEDS: guaiFENesin 12 HR 600 MG TABCR PO (20:43)
[2023-01-15] MEDS: QUEtiapine FUMARATE 100 MG TABLET 200 MG PO (20:43)
[2023-01-15] MEDS: polyethylene glycoL 3350 17 GM POWD.PACK PO (22:08)
[2023-01-16] VITALS (19 sets, daily range): BP systolic 97–118; BP diastolic 59–72; PULSE 74–98; RESP 16–20; TEMP 36.2–37; O2SAT 96–99
[2023-01-16] MEDS: IPRATROPIUM BR 0.02% INH SOLN 0.5 MG/2.5 ML VIAL INHALATION ×5 (00:06→20:12)
[2023-01-16] MEDS: ALBUTEROL SULFATE NEB 2.5 MG/3 ML INH INHALATION ×3 (00:07→08:06)
[2023-01-16 05:16] LABS: Alveolar/Arterial O2 Gradient 53.4 mmHg; Base Excess ABG 3.9 mEq/l (+/-2.0); Carboxyhemoglobin 0.3 % THb (0-2.0); Device NASAL CANNULA; Fractional Inspired Oxygen 28 %; HCO3 ABG 30.7 mEq/l (22.0-26.0); Methemoglobin ABG 0.7 %THb (0-1.5); Modified Allen's Test Pass; Oxygen Content ABG 26.6 %vol (16.0-22.0); Oxygen Saturation ABG 96.1 % (95.0-100.0); Oxyhemoglobin 94.8 % THb (90.0-100.0); PCO2 ABG 52.2 mmHg (35.0-45.0); PO2 ABG 84.6 mmHg (80.0-100.0); PO2 FiO2 Ratio Arterial Blood 3.02 %; Reduced Hemoglobin 4.2 %THb (0-5.0); Site Drawn LEFT RADIAL; pH ABG 7.387 (7.350-7.450)
[2023-01-16] MEDS: HYDROcodone/acetaminophen (*CRX) 5-325 MG TABLET 1 TAB PO ×4 (05:19→21:03)
[2023-01-16 06:36] LABS: Basophils Percent Auto 0.4 % (0.2-1.2); Eosinophils Absolute Auto 0.3 K/mm3 (0-0.3); Hematocrit 36.7 % (37.0-47.0); Hemoglobin 11.7 g/dL (12.0-15.0); Immature Granulocyte Absolute 0.08 K/mm3 (0.00-0.031); Immature Granulocyte Percent A 0.9 % (0-0.5); Lymphocytes Absolute Auto 1.62 K/mm3 (0.9-3.2); Lymphocytes Percent Auto 18.1 % (18.3-44.2); Mean Corpuscular HGB Conc 31.9 g/dl (32-36); Mean Corpuscular Hemoglobin 30.2 pg (26-34); Mean Corpuscular Volume 94.6 fl (80-100); Mean Platelet Volume 9.3 fl (7.4-10.4); Monocytes Absolute Auto 0.7 K/mm3 (0.1-0.6); Monocytes Percent Auto 7.6 % (2.6-8.5); Neutrophils Absolute Auto 6.2 K/mm3 (1.3-6.7); Platelet Count Result 322 k/mm3 (150-375); Red Blood Count 3.88 M/mm3 (4.2-5.4); Red Cell Distribution Width 14.8 % (11.5-14.5); White Blood Count 8.9 K/mm3 (4.5-10.0)
[2023-01-16 06:43] LABS: Alanine Aminotransferase 21 U/L (6-35); Albumin Level 3.4 g/dL (3.5-5.1); Alkaline Phosphatase 67 U/L (38-126); Anion Gap 2 mmol/L (8-16); Aspartate Amino Transferase 26 U/L (14-36); Bilirubin,Total 0.4 mg/dL (0.2-1.3); Blood Urea Nitrogen 12 mg/dL (7-17); Calcium 8.6 mg/dL (8.4-10.2); Carbon Dioxide 36 mmol/L (22-30); Chloride 100 mmol/L (98-107); Estimated CRCL calculation 76 ml/min; Estimated Glomerular Filt Rate > 60; Glucose 152 mg/dL (65-110); Potassium 4.1 mmol/L (3.4-5.0); Sodium 138 mmol/L (137-145)
[2023-01-16] MEDS: CEFEPIME 2 GM/NS 50 ML 2 GM/50 ML BAG IVPB (06:58)
[2023-01-16] MEDS: predniSONE 20 MG TABLET 40 MG PO (08:18)
[2023-01-16] MEDS: ENOXAPARIN 40 MG/0.4 ML SYRINGE SUB-Q (08:18)
[2023-01-16] MEDS: NICOTINE (*PBKC) 21 MG PATCH 1 PATCH TRANSDERM (08:18)
[2023-01-16] MEDS: guaiFENesin 12 HR 600 MG TABCR PO ×2 (08:19→21:00)
[2023-01-16] MEDS: PANTOPRAZOLE 40 MG TABLET PO (08:19)
[2023-01-16] MEDS: ATORVASTATIN 20 MG TABLET PO (08:19)
[2023-01-16] MEDS: VENLAFAXINE HCL XR 75 MG CAP.ER.24H 150 MG PO (08:19)
[2023-01-16] MEDS: CLOPIDOGREL BISULFATE 75 MG TABLET PO (08:19)
--- NOTE | 2023-01-16 12:22 | PM.IMPN ---
Progress Note: A&P Assessment and Plan (1) COPD exacerbation: Code(s): J44.1 - Chronic obstructive pulmonary disease with (acute) exacerbation Status: Acute Assessment and Plan: Patient presented with increased shortness of breath, wheezing, and hypoxia. Chest x-ray and chest CTA with small loculated right pleural effusion, tiny right apical pneumothorax and right hemidiaphragm elevation consistent with previous right upper lobectomy. Continue duonebs Q6 hours while awake and PRN for SOB/wheezing. Change albuterol to xopenex due to increased jitteriness. Continue prednisone 40 mg PO daily x 5 days (day 2) MRSA nares negative. Stop Vancomycin. Change cefepime and azithromycin to PO Levaquin 750 mg daily x 5 days, for total 7-day course. Sputum culture ordered but not collected as of yet. Blood cultures negative to date. Will start Anoro maintenance inhaler tomorrow if continues to improve. (2) Acute respiratory failure with hypoxia and hypercapnia: Code(s): J96.01 - Acute respiratory failure with hypoxia; J96.02 - Acute respiratory failure with hypercapnia Status: Acute Assessment and Plan: Hypoxia noted in ED and patient required 2L NC O2. Titrate O2 to keep sats>90%. Home O2 eval closer to discharge. (3) Lung cancer: Code(s): C34.90 - Malignant neoplasm of unspecified part of unspecified bronchus or lung Status: Chronic Assessment and Plan: Status post right lung upper lobe lobectomy c/o significant pain at surgery site. Continue Finley 5/325 mg PO Q4 hours PRN and add lidoderm patch 5% daily Follow-up in outpatient setting with Dr. Yang. (4) Current smoker: Code(s): F17.200 - Nicotine dependence, unspecified, uncomplicated Status: Chronic Assessment and Plan: Patient has cut down from 1 pack of cigarettes daily Still smoking 1 or 2 cigarettes a day Nicotine patch daily (5) Chronic GERD: Code(s): K21.9 - Gastro-esophageal reflux disease without esophagitis Status: Chronic Assessment and Plan: Continue PPI (6) Rheumatoid arthritis involving both knees with negative rheumatoid factor: Code(s): M06.061 - Rheumatoid arthritis without rheumatoid factor, right knee; M06.062 - Rheumatoid arthritis without rheumatoid factor, left knee Status: Acute Assessment and Plan: Tylenol p.r.n. (7) Urge urinary incontinence: Code(s): N39.41 - Urge incontinence Status: Acute Assessment and Plan: She c/o urge incontinence that is new and appears to be worse after nebulizer treatments. She is moderately distressed by this. Trial mirabegron 25 mg daily. Plan CODE STATUS: FULL CODE Discharge disposition: from home. Agreeable to home health Antibiotic: day 2 Time Spent With Patient Time with patient: 25 - 35 minutes Subjective Date/time seen: 01/16/23 12:22 Interval history: Her right back/chest pain is still sharp and constant. It felt better yesterday after resuming Finley, however, today it feels worse, she reports. The pain is worse with palpation. She thinks her breathing is better overall and was weaned to 1L NC today. She is agreeable to home oxygen if needed. Review of Systems Review of Systems: All systems reviewed & are unremarkable except as noted in HPI and below Exam Narrative: GENERAL: ?mildly anxious, tired appearing adult female sitting up in bed. HEENT: Normocephalic. sclera anicteric. pupils equal and round. moist mucous membranes RESPIRATORY: RR unlabored at rest. Lung sounds with faint expiratory wheeze LLL but clear to all other lobes. CARDIO: Normal S1 and S2 regular rate and rhythm. No murmurs, gallops or rubs. GI:? Soft, round, nondistended, nontender, bowel sounds present. No guarding. SKIN: fair, warm and dry, right upper back/chest transverse incision ALLISON with dermabond without erythema or discharge, tenderness to palpation distal to incision site. distal chest
[2023-01-16] MEDS: LEVALBUTEROL NEB 1.25 MG/3 ML INHALATION ×2 (14:21→20:12)
--- NOTE | 2023-01-16 15:09 | PCOTNOTE ---
OT orders received, however upon entering room, patient showering independently. No skilled therapy services indicated. Obtained D/C orders from Fiona Zhao.
--- NOTE | 2023-01-16 15:10 | PCPTNOTE ---
Pt found sitting bedside getting ready to take a shower. Pt declined the need for therapy at this time as for she is independent in room. Hospitalist contacted and agreed to Therapy orders being removed.
[2023-01-16] MEDS: levoFLOXacin 750 MG TABLET PO (16:21)
[2023-01-16] MEDS: LIDOCAINE 5% PATCH 2 PATCH TRANSDERM (16:21)
[2023-01-16] MEDS: ALPRAZolam (*CRX) 0.25 MG TABLET PO (16:25)
[2023-01-16 18:27] LABS: Vancomycin Trough 19.5 ug/mL (10.0-20.0)
[2023-01-16] MEDS: DOCUSATE SODIUM 100 MG CAPSULE PO (21:03)
[2023-01-16] MEDS: QUEtiapine FUMARATE 100 MG TABLET 200 MG PO (21:03)
[2023-01-16] MEDS: polyethylene glycoL 3350 17 GM POWD.PACK PO (21:04)
[2023-01-17] VITALS (8 sets, daily range): BP systolic 116; BP diastolic 69; PULSE 82–100; RESP 16; TEMP 37; O2SAT 94–99
[2023-01-17] MEDS: HYDROcodone/acetaminophen (*CRX) 5-325 MG TABLET 1 TAB PO ×3 (01:36→15:49)
[2023-01-17 04:54] LABS: Basophils Percent Auto 0.3 % (0.2-1.2); Eosinophils Absolute Auto 0.3 K/mm3 (0-0.3); Eosinophils Percent Auto 3.2 % (0-4.4); Hematocrit 36.4 % (37.0-47.0); Hemoglobin 11.3 g/dL (12.0-15.0); Immature Granulocyte Percent A 1.2 % (0-0.5); Lymphocytes Absolute Auto 1.87 K/mm3 (0.9-3.2); Lymphocytes Percent Auto 21.6 % (18.3-44.2); Mean Corpuscular Hemoglobin 29.4 pg (26-34); Mean Corpuscular Volume 94.5 fl (80-100); Mean Platelet Volume 9.1 fl (7.4-10.4); Monocytes Absolute Auto 0.7 K/mm3 (0.1-0.6); Neutrophils Absolute Auto 5.7 K/mm3 (1.3-6.7); Neutrophils Percent Auto 65.7 % (45.5-73.1); Platelet Count Result 335 k/mm3 (150-375); Red Blood Count 3.85 M/mm3 (4.2-5.4); Red Cell Distribution Width 14.6 % (11.5-14.5); White Blood Count 8.7 K/mm3 (4.5-10.0)
[2023-01-17 05:15] LABS: Estimated CRCL calculation 86 ml/min; Estimated Glomerular Filt Rate > 60
[2023-01-17] MEDS: LEVALBUTEROL NEB 1.25 MG/3 ML INHALATION ×2 (07:09→13:00)
[2023-01-17] MEDS: IPRATROPIUM BR 0.02% INH SOLN 0.5 MG/2.5 ML VIAL INHALATION ×2 (07:09→13:00)
--- NOTE | 2023-01-17 08:30 | HOMEO2EVAL ---
Evaluation was performed at [facility] Home Oxygen Evaluation RC: Home Oxygen (O2) Evaluation Start: 01/17/23 08:00 Freq: ONCE Status: Active Protocol: RPE Activity Type Activity Date Activity User E-sign Co-sign Detail Recorded Client Recorded Date Recorded By Document 01/17/23 08:09 TJT [email or web address] 01/17/23 08:24 TJT Document 01/17/23 08:17 TJT [email or web address] 01/17/23 08:21 TJT 01/17/23 01/17/23 08:09 08:17 Home O2 Evaluation [Oxygen] -Test Phase Exercise Resting -Oxygen Delivery Room Air Room Air -Fraction of Inspired Oxygen (%) 21 21 [Pulse Oximetry] -Pulse Oximetry (90-100 %) 94 94 [Pulse Rate] -Pulse Rate (60-100 beats/min) 82 100 [Evaluation] -Activity Tolerance Good -Rate of Perceived Exertion (PE) 6 Very, very Query Text:Click the Protocol Button light to View the RPE Scale [Exercise] -Ambulation Distance (feet) 400 -Ambulation Distance (meters) 121.91 [Comments] -Home Oxygen Evaluation Comments Pt does not require home O2 [Charges] -Treatment Charges O2 Evaluation - Inpatient
[2023-01-17] MEDS: predniSONE 20 MG TABLET 40 MG PO (09:16)
[2023-01-17] MEDS: CLOPIDOGREL BISULFATE 75 MG TABLET PO (09:16)
[2023-01-17] MEDS: guaiFENesin 12 HR 600 MG TABCR PO (09:16)
[2023-01-17] MEDS: VENLAFAXINE HCL XR 75 MG CAP.ER.24H 150 MG PO (09:16)
[2023-01-17] MEDS: PANTOPRAZOLE 40 MG TABLET PO (09:16)
[2023-01-17] MEDS: MIRABEGRON 25 MG ER TABLET PO (09:17)
[2023-01-17] MEDS: ATORVASTATIN 20 MG TABLET PO (09:17)
[2023-01-17] MEDS: ENOXAPARIN 40 MG/0.4 ML SYRINGE SUB-Q (09:41)
[2023-01-17] MEDS: NICOTINE (*PBKC) 21 MG PATCH 1 PATCH TRANSDERM (12:11)
[2023-01-17] MEDS: LIDOCAINE 5% PATCH 2 PATCH TRANSDERM (12:11)
[2023-01-17] MEDS: CYCLOBENZAPRINE HCL 10 MG TABLET PO (13:11)
--- NOTE | 2023-01-17 13:39 | PM.DS ---
DS: Admitting Diagnosis Discharge Date 01/17/2023 Admitting Diagnosis Chronic obstructive pulmonary disease with (acute) exacerbation Acute respiratory failure with hypoxia and hypercapnia: Malignant neoplasm of unspecified part of unspecified bronchus or lung Tobacco dependence DS: Discharge Diagnosis Discharge Diagnosis (1) COPD exacerbation: Code(s): J44.1 - Chronic obstructive pulmonary disease with (acute) exacerbation Status: Acute Assessment and Plan: Patient presented with increased shortness of breath, wheezing, and hypoxia. Chest x-ray and chest CTA with small loculated right pleural effusion, tiny right apical pneumothorax and right hemidiaphragm elevation consistent with previous right upper lobectomy. Treated with duonebs Q6 hours inititially and titraaated to PRN for SOB/wheezing. Changed albuterol to xopenex due to increased jitteriness. Increased maintenance prednisone from 2.5 (for arthritis) to prednisone 40 mg PO daily x 5 days Started on broadspectrum antibiotics- Vancomycin, Cefepime and azithromycin given recent surgery, hospitalization, immune suppression from cancer and chronic steroid use. MRSA nares negative. Stopped Vancomycin. 01/16/23 Changed cefepime and azithromycin to PO Levaquin 750 mg daily x 5 days, for total 7-day course. Sputum culture ordered but not collected as of yet. Blood cultures negative to date. Started Spiriva maintenance inhaler at discharge due to COPD exacerbation. (2) Acute respiratory failure with hypoxia and hypercapnia: Code(s): J96.01 - Acute respiratory failure with hypoxia; J96.02 - Acute respiratory failure with hypercapnia Status: Acute Assessment and Plan: Hypoxia noted in ED and patient required 2L NC O2. Titrate O2 to keep sats>90%. Home O2 eval - spO2 94% at rest and ambulation. No home O2 needed. (3) Lung cancer: Code(s): C34.90 - Malignant neoplasm of unspecified part of unspecified bronchus or lung Status: Chronic Assessment and Plan: Status post right lung upper lobe lobectomy c/o significant pain at surgery site. Continue [place] 5/325 mg PO Q4 hours PRN and added lidoderm patch 5% daily Added flexeril 10 mg PO TID PRN for muscle spasms. Follow-up in outpatient setting with Dr. Yang. (4) Current smoker: Code(s): F17.200 - Nicotine dependence, unspecified, uncomplicated Status: Chronic Assessment and Plan: Patient has cut down from 1 pack of cigarettes daily Still smoking 1 or 2 cigarettes a day Nicotine patch daily (5) Chronic GERD: Code(s): K21.9 - Gastro-esophageal reflux disease without esophagitis Status: Chronic Assessment and Plan: Continue PPI (6) Rheumatoid arthritis involving both knees with negative rheumatoid factor: Code(s): M06.061 - Rheumatoid arthritis without rheumatoid factor, right knee; M06.062 - Rheumatoid arthritis without rheumatoid factor, left knee Status: Chronic Assessment and Plan: Taking norco PRN for above. Resume prednisone 2.5 mg PO daily after 5 days completed of 40 mg dose. (7) Urge urinary incontinence: Code(s): N39.41 - Urge incontinence Status: Acute Assessment and Plan: She c/o urge incontinence that is new and appears to be worse after nebulizer treatments. She is moderately distressed by this. Trial mirabegron 25 mg daily. DS: Summary Hospital Course Reason for hospitalization: Shortness of breath Hospital Course: Patient is a 62-year-old female with COPD/emphysema, chronic tobacco use, and recent diagnosis of lung cancer status post right lung upper lobe lobectomy at outside facility on January 05.? She presented to the emergency room with c/o shortness of breath which is persistent and worse at exertion, and productive cough with thick yellow sputum. She reported progressively worsening symptoms since being discharged from the previous hospital on Thursday prior to admis
== END 2023-01-17 17:00 | disposition home or self-care (01) | DRG 190 ==
LOC: ANHED 01-15 03:05 → ANH3MED 01-15 03:28
PROVIDERS: Admitting Provider Internal Medicine; Emergency Provider Emergency Medicine; PCP Physician Assistant Medical; Visit Provider Nurse Practitioner Family
DX: J44.1 Chronic obstructive pulmonary disease with (acute) exacerbation (principal); J96.01 Acute respiratory failure with hypoxia; J96.02 Acute respiratory failure with hypercapnia; C34.90 Malignant neoplasm of unspecified part of unspecified bronchus or lung; Z20.822 Contact with and (suspected) exposure to COVID-19; F17.200 Nicotine dependence, unspecified, uncomplicated; K21.9 Gastro-esophageal reflux disease without esophagitis; M06.061 Rheumatoid arthritis without rheumatoid factor, right knee; M06.062 Rheumatoid arthritis without rheumatoid factor, left knee; N39.41 Urge incontinence; F43.10 Post-traumatic stress disorder, unspecified
CPT/HCPCS: 36415; 36600; 71045; 71275; 80053; 80202; 82375; 82550; 82565; 82805; 83050; 83605; 83735; 83880; 84484; 85025; 85610; 85730; 87040; 87081; 87637; 93005; 94618; 94640; 96361; 96365; 96366; 96367; 96372; 96375; 96376; 99285; A9270; G0378; J0456; J0692; J1650; J2930; J3370; J3475; J7030; J7512; Q9967

== ENCOUNTER 2023-05-25 08:18 | Outpatient (CLI) | payer MEDICARE, OTHER, SELFPAY ==
--- NOTE | 2023-05-25 17:23 | WPDSIXMINUTE ---
Six Minute Walk Procedure Procedure Performed Pulmonary Stress Test (6 min walk) Six Minute Walk Six Minute Walk: This is a 6 minute walk test. The test was performed and interpreted in accordance with the 2014 ERS/ATS task force guidelines. Findings: The patient's resting room air oxygen saturation measured by pulse oximetry was 93% and heart rate was 105 bpm. Patient ambulated for 305 meters and oxygen saturation remained 90 to 98%. Heart rate at the end of the study was 116 bpm. The patient did not qualify for supplemental oxygen at rest or with ambulation. There are no prior studies for comparison.
== END 2023-05-25 08:19 | disposition home or self-care (01) ==
PROVIDERS: PCP Physician Assistant Medical
DX: J43.9 Emphysema, unspecified (principal)
CPT/HCPCS: 94618

== ENCOUNTER 2023-07-13 12:21 | Outpatient (CLI) | payer MEDICARE, OTHER, SELFPAY ==
--- NOTE | ~2023-07-13 | US_ITS ---
EXAMINATION: US thyroid DATE: 07/13/2023 12:59 INDICATION: Thyroid nodule TECHNIQUE: Multiple ultrasound images of the thyroid were obtained. COMPARISON: None. FINDINGS: The right thyroid lobe measures 5.4 x 2.2 x 2.4 cm. The left thyroid lobe measures 4.7 x 1.7 x 2.3 c m. 1.9 cm wider than tall solid isoechoic nodule with smooth well-defined margins and without project internship al echogenic foci in the right thyroid lobe (TI-RADS 3, mildly suspicious , FNA if >=2.5 cm, annual f ollowup is >=1.5 cm). 1 cm predominantly solid, hypoechoic wider than tall nodule with smooth margins and without echogenic foci in the left thyroid (TI-RADS 4, moderately suspicious , FNA if >=1.5 cm, annual followup is >=1 cm). A couple 5 mm TI-RADS 1 cystic nodules, one in the left and one in the ri ght thyroid lobes. There is normal echotexture, echogenicity and vascular flow throughout the remaind er of the thyroid gland. IMPRESSION: 1. Multinodular goiter. Annual ultrasound follow-up would be recommended for both the 1.9 cm TI-RADS 3 right thyroid nodule and 1 cm TI-RADS 4 left thyroid nodule. Reviewed, dictated and finalized at location A. IMPRESSION: 1. Multinodular goiter. Annual ultrasound follow-up would be recommended for sukhwinder th the 1.9 cm TI-RADS 3 right thyroid nodule and 1 cm TI-RADS 4 left thyroid no dule.
== END 2023-07-13 12:22 | disposition home or self-care (01) ==
PROVIDERS: PCP Physician Assistant Medical
DX: E04.2 Nontoxic multinodular goiter (principal)
CPT/HCPCS: 76536

== ENCOUNTER 2023-07-17 13:30 | Outpatient (RCR) | payer MEDICARE, OTHER, SELFPAY | END 2023-07-28 14:26 | disposition home or self-care (01) | LOC: ANHCPREHAB 13:30 | PROVIDERS: PCP Physician Assistant Medical | DX: J43.9 Emphysema, unspecified (principal) | CPT/HCPCS: 94625; G0239 ==

== ENCOUNTER 2023-12-09 09:16 | Outpatient (CLI) | payer MEDICARE, SELFPAY ==
--- NOTE | ~2023-12-09 | MR_ITS ---
EXAMINATION: MR cervical spine wo con DATE: 12/09/2023 10:50 INDICATION: Neck pain. TECHNIQUE: Magnetic resonance imaging (MRI) of the cervical spine was performed without intravenous c ontrast. COMPARISON: Cervical spine MRI 01/13/2013, radiographs 11/24/2023 FINDINGS: There is kyphosis of cervical spine. There is 2 mm anterolisthesis of C3 on C4 and C4 on C5 . There is interbody fusion at C5-C6 and C6-C7. There is mildly decreased disc height at C3-C4 and C4 -C5. The spinal cord signal intensity is normal. The following disc levels are specifically discussed : C2-C3: The disc does not extend beyond the endplate margin. There is moderate bilateral uncovertebral joint osteoarthritis. There is severe bilateral facet joint osteoarthritis. There is moderate right and mild left neural foraminal stenosis. There is no central canal stenosis. C3-C4: The disc does not extend beyond the endplate margin. There is mild right and severe left uncov ertebral joint osteoarthritis. There is moderate right and severe left facet joint osteoarthritis. Th ere is mild right and severe left neural foraminal stenosis. There is no central canal stenosis. C4-C5: There is a central extrusion. There is severe right and moderate left uncovertebral joint oste oarthritis. There is severe right and moderate left facet joint osteoarthritis. There is moderate rig ht and mild left neural foraminal stenosis. There is mild central canal stenosis with ventral indenta tion of the spinal cord. C5-C6: There is mild bilateral uncovertebral joint hypertrophy. There is mild bilateral facet joint o steoarthritis. There is no neural foraminal stenosis. There is no central canal stenosis. C6-C7: There is moderate bilateral uncovertebral joint hypertrophy. There is ankylosis of right facet joint with mild hypertrophy. There is mild bilateral neural foraminal stenosis. There is no central canal stenosis. C7-T1: The disc is bulging. There is mild right and moderate left uncovertebral joint osteoarthritis. There is severe bilateral facet joint osteoarthritis. There is mild right and moderate left neural f oraminal stenosis. There is mild central canal stenosis. IMPRESSION: 1. Moderate cervical spondylosis, worsened from 01/13/2013. 2. Anterior fusion from C5 to C7. Reviewed, dictated and finalized at location A. 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
== END 2023-12-09 09:17 | disposition home or self-care (01) ==
PROVIDERS: PCP Nurse Practitioner Family; Visit Provider Nurse Practitioner Family
DX: S32.050A Wedge compression fracture of fifth lumbar vertebra, initial encounter for closed fracture (principal); X58.XXXA Exposure to other specified factors, initial encounter; M47.892 Other spondylosis, cervical region; Z98.1 Arthrodesis status
CPT/HCPCS: 72141

== ENCOUNTER 2023-12-22 13:09 | Outpatient (CLI) | payer MEDICARE, SELFPAY ==
--- NOTE | ~2023-12-22 | CT_ITS ---
Non-contrast CT scan of the Abdomen and Pelvis Clinical indication: Kidney stone Technique: 2.5 mm axial scans were obtained through the abdomen and pelvis without intravenous or or al contrast. Dose reduction technique was used on this scan by utilizing automated exposure control a nd iterative reconstruction technique. The dose-length product (DLP) was 381.71 mGy-cm. Findings: Images through the lung bases reveal no abnormalities. There is no evidence of renal or ureteral calculi. The kidneys and the ureters are nondilated. The liver, spleen, pancreas, gallbladder, and right adrenal gland appear normal. Low-density left adr enal nodule is consistent with adenoma. There are atherosclerotic calcifications of the aorta. There is no evidence of bowel obstruction. Images through the pelvis were performed. There is no evidence of ascites or lymphadenopathy. Urinary bladder unremarkable. No pelvic mass seen. Mild T11 compression fracture present. Impression: No renal, ureteral, or bladder stone. No hydronephrosis. Left adrenal adenoma. Mild T11 compression fracture, age-indeterminate. Reviewed, dictated and finalized at [facility]. Impression: No renal, ureteral, or bladder stone. No hydronephrosis. Left adrenal adenoma. Mild T11 compression fracture, age-indeterminate.
== END 2023-12-22 13:10 | disposition home or self-care (01) ==
LOC: ANHIMG 13:16
PROVIDERS: PCP Physician Assistant Medical; Visit Provider Nurse Practitioner Family
DX: D35.02 Benign neoplasm of left adrenal gland (principal); S22.080A Wedge compression fracture of T11-T12 vertebra, initial encounter for closed fracture; X58.XXXA Exposure to other specified factors, initial encounter
CPT/HCPCS: 74176

== ENCOUNTER 2024-06-14 13:29 | Outpatient (CLI) | payer MEDICARE, SELFPAY ==
--- NOTE | ~2024-06-14 | MM_ITS ---
EXAMINATION: MM screening aby BI w kwaku HISTORY: Screening TECHNIQUE: Craniocaudal and mediolateral oblique 3-D tomosynthesis images were obtained and synthetic 2-D images were generated. CAD analysis was submitted and interpreted. COMPARISON: Comparison to multiple prior studies sequentially, with oldest reviewed study dated 02/2019. BREAST PARENCHYMAL COMPOSITION: Dense: The breasts are heterogeneously dense, which may obscure small masses FINDINGS: There is no evidence of suspicious mass, calcification, or architectural distortion to sugg est malignancy in either breast. There has been no suspicious interval change. IMPRESSION: 1. No mammographic evidence of malignancy. 2. Recommend routine screening mammography in one year. BI-RADS Category 1: Negative Reviewed, dictated and finalized at location B.
== END 2024-06-14 13:30 | disposition home or self-care (01) ==
LOC: MICIMG 13:31
PROVIDERS: PCP Physician Assistant Medical; Visit Provider Physician Assistant Medical
DX: Z12.31 Encounter for screening mammogram for malignant neoplasm of breast (principal)
CPT/HCPCS: 77063; 77067